=== PATIENT | male | born 1940 | race Caucasian/White ===

== ENCOUNTER 2022-01-09 17:58 | Inpatient (IN) | payer OTHER ==
[~2022-01-09] VITALS: Ht 157.5 cm; Wt 94.3 kg
[2022-01-09 18:35] VITALS: BP_SYST 110
[2022-01-09 19:05] LABS: HEMATOCRIT 24.9 % (36-54); HEMOGLOBIN 8.1 g/dL (14.0-18.0); MEAN CORPUSCULAR HEMOGLOBIN 32 pg (27-31); MEAN CORPUSCULAR HGB CONC 33 % (32-36); MEAN CORPUSCULAR VOLUME 97 fL (79.0-98.0); PLATELET COUNT (AUTO) 223 K/uL (130-430); RED BLOOD CELL COUNT(AUTO) 2.57 MIL/uL (4.2-6.2); RED CELL DISTRIBUTION WIDTH 17.2 % (9.0-15.0); WHITE BLOOD COUNT (AUTO) 13.8 K/uL (4.8-10.8)
[2022-01-09 19:23] LABS: BAND % (MANUAL) 11 % (0-6); BASOPHILS % (MANUAL) 0 % (0-2); EOSINOPHILS % (MANUAL) 0 % (0-7); LYMPHOCYTES % (MANUAL) 4 % (20-46); METAMYELOCYTES % 2 % (0-0); MONOCYTES % (MANUAL) 0 % (0-11)
[2022-01-09 19:43] LABS: ACETONE, SERUM NEGATIVE (NEGATIVE)
[2022-01-09 19:44] LABS: ANION GAP 22 (5-15); CALCIUM 7.4 mg/dL (8.4-11.0); CHLORIDE 111 mmol/L (98-107); CREATININE 6.87 mg/dL (0.55-1.30); GLUCOSE 134 mg/dL (70-99); TOTAL BILIRUBIN 0.4 mg/dL (0.0-1.0); UREA NITROGEN, BLOOD 78 mg/dL (8-21)
[2022-01-09 19:45] LABS: ALANINE AMINOTRANSFERASE 12 U/L (12-78); ALBUMIN 2.4 g/dL (3.4-4.8); ASPARTATE AMINOTRANSFERASE 14 U/L (10-37)
[2022-01-09 19:47] LABS: POTASSIUM 2.4 mmol/L (3.5-5.1)
[2022-01-09] MEDS ORDERED: POTASSIUM CHLORIDE 20 MEQ/PKT PACKET PO ONE (20:45)
[2022-01-09] MEDS ORDERED: KCL 20 mEq in 100 mL (PREMIX) 100 ML IV ONE (20:45)
[2022-01-09] MEDS ORDERED: NS 500 ML IV ONE (21:15)
[2022-01-09] MEDS ORDERED: SODIUM BICARBONATE 8.4% JECT 100 MEQ in D5W 1,000 ML IV ONE (21:45)
[2022-01-10] VITALS (21 sets, daily range): BP systolic 86–144
[2022-01-10 06:08] LABS: HEMATOCRIT 22.7 % (36-54); HEMOGLOBIN 7.6 g/dL (14.0-18.0); MEAN CORPUSCULAR HEMOGLOBIN 32 pg (27-31); MEAN CORPUSCULAR HGB CONC 33 % (32-36); MEAN CORPUSCULAR VOLUME 97 fL (79.0-98.0); PLATELET COUNT (AUTO) 232 K/uL (130-430); RED BLOOD CELL COUNT(AUTO) 2.34 MIL/uL (4.2-6.2); RED CELL DISTRIBUTION WIDTH 16.6 % (9.0-15.0)
[2022-01-10 07:15] LABS: ALANINE AMINOTRANSFERASE 14 U/L (12-78); ALBUMIN 2.2 g/dL (3.4-4.8); ANION GAP 20 (5-15); ASPARTATE AMINOTRANSFERASE 17 U/L (10-37); CALCIUM 7.3 mg/dL (8.4-11.0); CHLORIDE 110 mmol/L (98-107); CREATININE 7.05 mg/dL (0.55-1.30); GLUCOSE 134 mg/dL (70-99); TOTAL BILIRUBIN 0.4 mg/dL (0.0-1.0); UREA NITROGEN, BLOOD 81 mg/dL (8-21)
[2022-01-10 07:19] LABS: WHITE BLOOD COUNT (AUTO) 36.3 K/uL (4.8-10.8)
[2022-01-10 07:37] LABS: POTASSIUM 2.9 mmol/L (3.5-5.1)
[2022-01-10 08:23] LABS: ATYPICAL LYMPHOCYTES % 0 % (0-0); BAND % (MANUAL) 9 % (0-6); BASOPHILS % (MANUAL) 0 % (0-2); EOSINOPHILS % (MANUAL) 1 % (0-7); LYMPHOCYTES % (MANUAL) 6 % (20-46); MONOCYTES % (MANUAL) 5 % (0-11)
[2022-01-10] MEDS ORDERED: PIPERACILLIN/TAZO 4.5GM/DEX-IS 100 ML IV SCH (09:00)
[2022-01-10] MEDS: PIPERACILLIN/TAZOBACTAM 2.25 GM/ D5W 50 ML IV SCH ×6 (09:45→18:28)
[2022-01-10] MEDS: ALBUMIN HUMAN 25% 50 ML IV SCH ×3 (09:45→21:41)
[2022-01-10 09:50] LABS: PROTHROMBIN TIME 10.8 SECS (9.5-12.5)
[2022-01-10] MEDS ORDERED: VANCOMYCIN HCL 1,500 MG in NS 250 ML IV ONE (10:00)
[2022-01-10] MEDS ORDERED: POTASSIUM CHLORIDE 20 MEQ TAB.PRT.SR PO ONE (11:30)
[2022-01-10] MEDS ORDERED: ACETAMINOPHEN 500 MG TABLET ONE (14:20)
[2022-01-10] MEDS: MORPHINE 4 MG INJ. 4 MG/ML VIAL IVP PRN (21:42)
[2022-01-11] VITALS (26 sets, daily range): BP systolic 97–133
[2022-01-11] MEDS: PIPERACILLIN/TAZOBACTAM 2.25 GM/ D5W 50 ML IV SCH ×10 (01:20→23:18)
[2022-01-11] MEDS: MORPHINE 4 MG INJ. 4 MG/ML VIAL IVP PRN ×2 (01:47→12:24)
[2022-01-11 06:30] LABS: BASOPHILS # (AUTO) 0.2 K/uL (0.0-0.2); BASOPHILS % (AUTO) 0.8 % (0.0-2.0); EOSINOPHILS # (AUTO) 0.4 K/uL (0.0-0.4); EOSINOPHILS % (AUTO) 1.7 % (0.0-4.0); HEMATOCRIT 22.7 % (36-54); HEMOGLOBIN 7.6 g/dL (14.0-18.0); LYMPHOCYTES # (AUTO) 2.2 K/uL (1.0-5.5); LYMPHOCYTES % (AUTO) 9.7 % (20.5-51.5); MEAN CORPUSCULAR HEMOGLOBIN 32 pg (27-31); MEAN CORPUSCULAR HGB CONC 34 % (32-36); MEAN CORPUSCULAR VOLUME 96 fL (79.0-98.0); MONOCYTES # (AUTO) 1.2 K/uL (0.0-1.0); MONOCYTES % (AUTO) 5.3 % (1.7-9.3); NEUTROPHILS # (AUTO) 18.9 K/uL (1.8-7.7); NEUTROPHILS % (AUTO) 82.5 % (40.0-70.0); PLATELET COUNT (AUTO) 223 K/uL (130-430); RED BLOOD CELL COUNT(AUTO) 2.36 MIL/uL (4.2-6.2); RED CELL DISTRIBUTION WIDTH 16.9 % (9.0-15.0); WHITE BLOOD COUNT (AUTO) 22.9 K/uL (4.8-10.8)
[2022-01-11 06:48] LABS: ANION GAP 17 (5-15); CALCIUM 7.4 mg/dL (8.4-11.0); CHLORIDE 109 mmol/L (98-107); GLUCOSE 106 mg/dL (70-99); UREA NITROGEN, BLOOD 80 mg/dL (8-21)
[2022-01-11 08:44] LABS: CREATININE 7.62 mg/dL (0.55-1.30); POTASSIUM 2.9 mmol/L (3.5-5.1)
[2022-01-11] MEDS: ACETAMINOPHEN 500 MG TABLET PO PRN (11:03)
[2022-01-11] MEDS ORDERED: VANCOMYCIN HCL 1,000 MG in NS 250 ML IV ONE (14:00)
[2022-01-11] MEDS ORDERED: POTASSIUM CHLORIDE 40 MEQ in NS 250 ML IV ONE (16:00)
[2022-01-11] MEDS ORDERED: HEPARIN SODIUM, PORCINE 10,000 UNITS/ 10 ML VIAL ONE (17:04)
[2022-01-11] MEDS ORDERED: HEPARIN IV FLUSH 300 UNITS/3ML SYR INJ ONE (17:15)
[2022-01-12] VITALS (19 sets, daily range): BP systolic 107–131
[2022-01-12] MEDS: PIPERACILLIN/TAZOBACTAM 2.25 GM/ D5W 50 ML IV SCH ×6 (05:12→18:33)
[2022-01-12 06:29] LABS: BASOPHILS # (AUTO) 0.2 K/uL (0.0-0.2); BASOPHILS % (AUTO) 0.9 % (0.0-2.0); EOSINOPHILS # (AUTO) 0.3 K/uL (0.0-0.4); EOSINOPHILS % (AUTO) 1.3 % (0.0-4.0); HEMOGLOBIN 7.3 g/dL (14.0-18.0); LYMPHOCYTES # (AUTO) 2.1 K/uL (1.0-5.5); LYMPHOCYTES % (AUTO) 11.3 % (20.5-51.5); MEAN CORPUSCULAR HEMOGLOBIN 33 pg (27-31); MEAN CORPUSCULAR HGB CONC 35 % (32-36); MEAN CORPUSCULAR VOLUME 95 fL (79.0-98.0); MONOCYTES # (AUTO) 1.3 K/uL (0.0-1.0); MONOCYTES % (AUTO) 7.1 % (1.7-9.3); NEUTROPHILS # (AUTO) 14.9 K/uL (1.8-7.7); NEUTROPHILS % (AUTO) 79.4 % (40.0-70.0); PLATELET COUNT (AUTO) 225 K/uL (130-430); RED BLOOD CELL COUNT(AUTO) 2.23 MIL/uL (4.2-6.2); RED CELL DISTRIBUTION WIDTH 16.4 % (9.0-15.0); WHITE BLOOD COUNT (AUTO) 18.8 K/uL (4.8-10.8)
[2022-01-12 06:53] LABS: ANION GAP 19 (5-15); CHLORIDE 106 mmol/L (98-107); CREATININE 5.88 mg/dL (0.55-1.30); GLUCOSE 108 mg/dL (70-99); POTASSIUM 3.1 mmol/L (3.5-5.1); UREA NITROGEN, BLOOD 60 mg/dL (8-21)
[2022-01-12 07:06] LABS: HEMATOCRIT 21.2 % (36-54)
[2022-01-12 07:53] LABS: CALCIUM 7.3 mg/dL (8.4-11.0)
[2022-01-12] MEDS: MORPHINE 4 MG INJ. 4 MG/ML VIAL IVP PRN (11:45)
[2022-01-12] MEDS ORDERED: HEPARIN SODIUM,PORCINE 5,000 UNITS/ML VIAL ONE (13:16)
[2022-01-12] MEDS ORDERED: VANCOMYCIN HCL 1,000 MG in NS 250 ML IV ONE (14:00)
[2022-01-13] VITALS: BP_SYST 122
[2022-01-13] MEDS: PIPERACILLIN/TAZOBACTAM 2.25 GM/ D5W 50 ML IV SCH ×10 (00:10→23:55)
[2022-01-13 06:52] LABS: BASOPHILS # (AUTO) 0.2 K/uL (0.0-0.2); BASOPHILS % (AUTO) 0.8 % (0.0-2.0); EOSINOPHILS # (AUTO) 0.2 K/uL (0.0-0.4); HEMATOCRIT 27.5 % (36-54); HEMOGLOBIN 9.6 g/dL (14.0-18.0); LYMPHOCYTES # (AUTO) 2.8 K/uL (1.0-5.5); LYMPHOCYTES % (AUTO) 11.5 % (20.5-51.5); MEAN CORPUSCULAR HEMOGLOBIN 32 pg (27-31); MEAN CORPUSCULAR HGB CONC 35 % (32-36); MEAN CORPUSCULAR VOLUME 92 fL (79.0-98.0); MONOCYTES # (AUTO) 1.2 K/uL (0.0-1.0); NEUTROPHILS % (AUTO) 81.7 % (40.0-70.0); PLATELET COUNT (AUTO) 256 K/uL (130-430); RED BLOOD CELL COUNT(AUTO) 2.98 MIL/uL (4.2-6.2); WHITE BLOOD COUNT (AUTO) 24.5 K/uL (4.8-10.8)
[2022-01-13 07:56] LABS: ANION GAP 17 (5-15); CALCIUM 7.9 mg/dL (8.4-11.0); CHLORIDE 100 mmol/L (98-107); GLUCOSE 135 mg/dL (70-99); UREA NITROGEN, BLOOD 39 mg/dL (8-21)
[2022-01-13 08:00] VITALS: BP_SYST 117
[2022-01-13] MEDS: BALSAM PERU/CASTOR OIL 56.7 GM OINT...G. TP SCH (10:07)
[2022-01-13 12:00] VITALS: BP_SYST 132
[2022-01-13 12:50] LABS: VANCOMYCIN,RANDOM 23.4 ug/mL
[2022-01-13] MEDS ORDERED: VANCOMYCIN HCL 500 MG in NS 100 ML IV ONE (14:00)
[2022-01-13 16:01] VITALS: BP_SYST 120
[2022-01-13] MEDS: MORPHINE 4 MG INJ. 4 MG/ML VIAL IVP PRN ×2 (18:30→22:13)
[2022-01-13] MEDS: ONDANSETRON HCL 4 MG/2 ML VIAL IVP PRN (18:56)
[2022-01-13 20:04] VITALS: BP_SYST 122
[2022-01-13 20:05] VITALS: BP_SYST 122
[2022-01-14] MEDS: MORPHINE 4 MG INJ. 4 MG/ML VIAL IVP PRN ×2 (05:55→14:05)
[2022-01-14] MEDS: PIPERACILLIN/TAZOBACTAM 2.25 GM/ D5W 50 ML IV SCH ×8 (05:55→23:20)
[2022-01-14 07:00] VITALS: BP_SYST 125
[2022-01-14 07:05] LABS: CALCIUM 8.2 mg/dL (8.4-11.0); CHLORIDE 98 mmol/L (98-107); CREATININE 6.41 mg/dL (0.55-1.30); GLUCOSE 132 mg/dL (70-99); UREA NITROGEN, BLOOD 50 mg/dL (8-21)
[2022-01-14 07:13] LABS: HEMOGLOBIN 9.5 g/dL (14.0-18.0); MEAN CORPUSCULAR HEMOGLOBIN 32 pg (27-31); MEAN CORPUSCULAR HGB CONC 34 % (32-36); MEAN CORPUSCULAR VOLUME 94 fL (79.0-98.0); PLATELET COUNT (AUTO) 271 K/uL (130-430); RED CELL DISTRIBUTION WIDTH 17.5 % (9.0-15.0); WHITE BLOOD COUNT (AUTO) 27.5 K/uL (4.8-10.8)
[2022-01-14 07:32] LABS: ANION GAP 16 (5-15)
[2022-01-14 07:46] LABS: POTASSIUM 2.9 mmol/L (3.5-5.1)
[2022-01-14 08:00] VITALS: BP_SYST 125
[2022-01-14] MEDS: BALSAM PERU/CASTOR OIL 56.7 GM OINT...G. TP SCH (08:32)
[2022-01-14 09:25] LABS: LYMPHOCYTES % (AUTO) 12.5 % (20.5-51.5); NEUTROPHILS % (AUTO) 77.7 % (40.0-70.0)
[2022-01-14 09:26] LABS: BASOPHILS % (AUTO) 0.9 % (0.0-2.0); EOSINOPHILS % (AUTO) 2.2 % (0.0-4.0); MONOCYTES % (AUTO) 6.7 % (1.7-9.3)
[2022-01-14 09:27] LABS: ATYPICAL LYMPHOCYTES % 0 % (0-0); BAND % (MANUAL) 59 % (0-6); BASOPHILS % (MANUAL) 0 % (0-2); BLASTS, MANUAL % 0 % (0-0); EOSINOPHILS % (MANUAL) 3 % (0-7); LYMPHOCYTES % (MANUAL) 14 % (20-46); METAMYELOCYTES % 0 % (0-0); MONOCYTES % (MANUAL) 5 % (0-11); MYELOCYTES % 0 % (0-0); PROMYELOCYTES % 0 % (0-0)
[2022-01-14 09:28] LABS: OTHER CELLS,MANUAL % 0 (0-0)
[2022-01-14 09:55] LABS: VANCOMYCIN,RANDOM 22.4 ug/mL
[2022-01-14] MEDS ORDERED: KCL 10 mEq in 50 mL (PREMIX) 50 ML IV ONE (11:00)
[2022-01-14] MEDS ORDERED: KCL 20 mEq in 100 mL (PREMIX) 100 ML IV ONE (12:00)
[2022-01-14 12:39] VITALS: BP_SYST 116
[2022-01-14] MEDS: FLUCONAZOLE 200 mg/ NS 100 ML IV SCH (14:16)
[2022-01-14] MEDS ORDERED: HEPARIN SODIUM,PORCINE 5,000 UNITS/ML VIAL IVP ONE (15:45)
[2022-01-14] MEDS ORDERED: HEPARIN SODIUM,PORCINE 5,000 UNITS/ML VIAL MC ONE (16:00)
[2022-01-14 17:07] VITALS: BP_SYST 121
[2022-01-14 19:20] VITALS: BP_SYST 95
[2022-01-14] MEDS: ONDANSETRON HCL 4 MG/2 ML VIAL IVP PRN (23:20)
[2022-01-14 23:49] VITALS: BP_SYST 121
[2022-01-15] MEDS: MORPHINE 4 MG INJ. 4 MG/ML VIAL IVP PRN ×3 (01:31→15:17)
[2022-01-15] MEDS: PIPERACILLIN/TAZOBACTAM 2.25 GM/ D5W 50 ML IV SCH ×8 (05:15→23:52)
[2022-01-15 07:03] LABS: BASOPHILS # (AUTO) 0.2 K/uL (0.0-0.2); BASOPHILS % (AUTO) 0.7 % (0.0-2.0); EOSINOPHILS # (AUTO) 0.4 K/uL (0.0-0.4); EOSINOPHILS % (AUTO) 1.6 % (0.0-4.0); HEMATOCRIT 29.1 % (36-54); HEMOGLOBIN 9.6 g/dL (14.0-18.0); LYMPHOCYTES # (AUTO) 3.5 K/uL (1.0-5.5); LYMPHOCYTES % (AUTO) 13.5 % (20.5-51.5); MEAN CORPUSCULAR HEMOGLOBIN 32 pg (27-31); MEAN CORPUSCULAR HGB CONC 33 % (32-36); MEAN CORPUSCULAR VOLUME 95 fL (79.0-98.0); MONOCYTES # (AUTO) 1.7 K/uL (0.0-1.0); MONOCYTES % (AUTO) 6.8 % (1.7-9.3); NEUTROPHILS # (AUTO) 19.8 K/uL (1.8-7.7); NEUTROPHILS % (AUTO) 77.4 % (40.0-70.0); PLATELET COUNT (AUTO) 235 K/uL (130-430); RED BLOOD CELL COUNT(AUTO) 3.05 MIL/uL (4.2-6.2); RED CELL DISTRIBUTION WIDTH 17.2 % (9.0-15.0); WHITE BLOOD COUNT (AUTO) 25.6 K/uL (4.8-10.8)
[2022-01-15 07:19] LABS: CALCIUM 8.1 mg/dL (8.4-11.0); CREATININE 5.01 mg/dL (0.55-1.30); POTASSIUM 3.5 mmol/L (3.5-5.1)
[2022-01-15 07:51] LABS: VANCOMYCIN,RANDOM 17.7 ug/mL
[2022-01-15 08:00] VITALS: BP_SYST 119
[2022-01-15 08:06] LABS: HEPATITIS C VIRUS AB 0.3 s/co ratio (0.0-0.9)
[2022-01-15] MEDS: BALSAM PERU/CASTOR OIL 56.7 GM OINT...G. TP SCH (09:00)
[2022-01-15 12:39] VITALS: BP_SYST 144
[2022-01-15] MEDS: FLUCONAZOLE 200 mg/ NS 100 ML IV SCH (15:02)
[2022-01-15 16:10] VITALS: BP_SYST 140
[2022-01-16 00:50] VITALS: BP_SYST 138
[2022-01-16] MEDS: PIPERACILLIN/TAZOBACTAM 2.25 GM/ D5W 50 ML IV SCH ×6 (06:14→17:12)
[2022-01-16 08:00] VITALS: BP_SYST 136
[2022-01-16] MEDS: BALSAM PERU/CASTOR OIL 56.7 GM OINT...G. TP SCH (09:16)
[2022-01-16] MEDS: MORPHINE 4 MG INJ. 4 MG/ML VIAL IVP PRN (09:16)
[2022-01-16 11:41] VITALS: BP_SYST 106
[2022-01-16 12:00] VITALS: BP_SYST 110
[2022-01-16] MEDS ORDERED: VANCOMYCIN HCL 1,000 MG in NS 250 ML IV ONE (14:00)
[2022-01-16] MEDS: FLUCONAZOLE 200 mg/ NS 100 ML IV SCH (14:22)
[2022-01-16] MEDS ORDERED: iohexoL 300 mgI/mL, 150 ML INFUS..BTL IV ONE (15:37)
[2022-01-16 17:14] VITALS: BP_SYST 110
[2022-01-16 20:00] VITALS: BP_SYST 115
[2022-01-17] VITALS: BP_SYST 116
[2022-01-17] MEDS: PIPERACILLIN/TAZOBACTAM 2.25 GM/ D5W 50 ML IV SCH ×4 (00:57→06:39)
[2022-01-17 07:00] VITALS: BP_SYST 104
[2022-01-17 08:00] VITALS: BP_SYST 104
[2022-01-17] MEDS: BALSAM PERU/CASTOR OIL 56.7 GM OINT...G. TP SCH (08:52)
[2022-01-17] MEDS: MORPHINE 4 MG INJ. 4 MG/ML VIAL IVP PRN (09:39)
[2022-01-17 11:17] VITALS: BP_SYST 109
[2022-01-17 16:06] VITALS: BP_SYST 123
[2022-01-17] MEDS: FLUCONAZOLE 200 mg/ NS 100 ML IV SCH (18:10)
[2022-01-17 20:00] VITALS: BP_SYST 119
[2022-01-17] MEDS: metroNIDAZOLE 250 mg/NS 50 ML IV SCH (21:30)
[2022-01-17 21:38] LABS: HEMATOCRIT 28.6 % (36-54); HEMOGLOBIN 9.4 g/dL (14.0-18.0); MEAN CORPUSCULAR HEMOGLOBIN 31 pg (27-31); MEAN CORPUSCULAR HGB CONC 33 % (32-36); MEAN CORPUSCULAR VOLUME 94 fL (79.0-98.0); PLATELET COUNT (AUTO) 296 K/uL (130-430); RED BLOOD CELL COUNT(AUTO) 3.04 MIL/uL (4.2-6.2); RED CELL DISTRIBUTION WIDTH 17.2 % (9.0-15.0); WHITE BLOOD COUNT (AUTO) 18.3 K/uL (4.8-10.8)
[2022-01-17 22:25] LABS: BAND % (MANUAL) 3 % (0-6); BASOPHILS % (MANUAL) 0 % (0-2); EOSINOPHILS % (MANUAL) 0 % (0-7); METAMYELOCYTES % 2 % (0-0); MONOCYTES % (MANUAL) 6 % (0-11); MYELOCYTES % 1 % (0-0)
[2022-01-17 22:27] LABS: LYMPHOCYTES % (MANUAL) 15 % (20-46)
[2022-01-18 00:45] VITALS: BP_SYST 105
[2022-01-18] MEDS: MORPHINE 4 MG INJ. 4 MG/ML VIAL IVP PRN ×2 (04:33→20:57)
[2022-01-18] MEDS: ONDANSETRON HCL 4 MG/2 ML VIAL IVP PRN ×2 (04:33→13:25)
[2022-01-18] MEDS: metroNIDAZOLE 250 mg/NS 50 ML IV SCH ×3 (05:21→20:57)
[2022-01-18] MEDS: BALSAM PERU/CASTOR OIL 56.7 GM OINT...G. TP SCH (09:39)
[2022-01-18] MEDS: FLUCONAZOLE 200 mg/ NS 100 ML IV SCH (10:47)
[2022-01-18 11:06] LABS: HEPATITIS A AB, IgM Negative (Negative); HEPATITIS B CORE AB, IgM Negative (Negative); HEPATITIS B SURFACE AG Negative (Negative)
[2022-01-18] MEDS ORDERED: PANTOPRAZOLE SODIUM 40 MG/VIAL (PROTONIX) IVP ONE (12:00)
[2022-01-18 12:54] VITALS: BP_SYST 114
[2022-01-18] MEDS ORDERED: HEPARIN SODIUM, PORCINE 10,000 UNITS/ 10 ML VIAL ONE (13:21)
[2022-01-18 16:59] VITALS: BP_SYST 109
[2022-01-18 20:00] VITALS: BP_SYST 130
[2022-01-19 00:24] VITALS: BP_SYST 132
[2022-01-19] MEDS: metroNIDAZOLE 250 mg/NS 50 ML IV SCH ×3 (06:35→21:31)
[2022-01-19 08:38] VITALS: BP_SYST 113
[2022-01-19] MEDS: VANCOMYCIN HCL 750 MG in NS 250 ML IV SCH (09:11)
[2022-01-19] MEDS: BALSAM PERU/CASTOR OIL 56.7 GM OINT...G. TP SCH (09:11)
[2022-01-19] MEDS: PANTOPRAZOLE SODIUM 40 MG/VIAL (PROTONIX) IVP SCH (09:11)
[2022-01-19] MEDS: FLUCONAZOLE 200 mg/ NS 100 ML IV SCH (14:00)
[2022-01-19 16:02] VITALS: BP_SYST 118
[2022-01-19 20:00] VITALS: BP_SYST 117
[2022-01-20 00:52] VITALS: BP_SYST 119
[2022-01-20] MEDS: metroNIDAZOLE 250 mg/NS 50 ML IV SCH ×3 (05:25→21:09)
[2022-01-20 08:00] VITALS: BP_SYST 113
[2022-01-20] MEDS: PANTOPRAZOLE SODIUM 40 MG/VIAL (PROTONIX) IVP SCH (08:47)
[2022-01-20] MEDS: BALSAM PERU/CASTOR OIL 56.7 GM OINT...G. TP SCH (08:51)
[2022-01-20 12:55] VITALS: BP_SYST 101
[2022-01-20] MEDS: MORPHINE 4 MG INJ. 4 MG/ML VIAL IVP PRN (14:22)
[2022-01-20 16:34] VITALS: BP_SYST 97
[2022-01-20] MEDS: FLUCONAZOLE 200 mg/ NS 100 ML IV SCH (16:35)
[2022-01-20 20:00] VITALS: BP_SYST 116
[2022-01-20 20:00] LABS: HEMATOCRIT 28.9 % (36-54); HEMOGLOBIN 9.3 g/dL (14.0-18.0); MEAN CORPUSCULAR HEMOGLOBIN 31 pg (27-31); MEAN CORPUSCULAR HGB CONC 32 % (32-36); MEAN CORPUSCULAR VOLUME 96 fL (79.0-98.0); PLATELET COUNT (AUTO) 324 K/uL (130-430); RED BLOOD CELL COUNT(AUTO) 3.01 MIL/uL (4.2-6.2); RED CELL DISTRIBUTION WIDTH 16.7 % (9.0-15.0); WHITE BLOOD COUNT (AUTO) 19.7 K/uL (4.8-10.8)
[2022-01-20 20:07] LABS: ANION GAP 9 (5-15); CALCIUM 8.3 mg/dL (8.4-11.0); CHLORIDE 97 mmol/L (98-107); GLUCOSE 157 mg/dL (70-99); POTASSIUM 3.3 mmol/L (3.5-5.1); UREA NITROGEN, BLOOD 31 mg/dL (8-21)
[2022-01-20 20:24] LABS: BAND % (MANUAL) 3 % (0-6); BASOPHILS % (MANUAL) 0 % (0-2); EOSINOPHILS % (MANUAL) 2 % (0-7); LYMPHOCYTES % (MANUAL) 14 % (20-46); METAMYELOCYTES % 2 % (0-0); MONOCYTES % (MANUAL) 5 % (0-11)
[2022-01-21] VITALS: BP_SYST 114
[2022-01-21] MEDS: metroNIDAZOLE 250 mg/NS 50 ML IV SCH ×3 (05:17→20:57)
[2022-01-21 06:59] LABS: BASOPHILS # (AUTO) 0.1 K/uL (0.0-0.2); BASOPHILS % (AUTO) 0.5 % (0.0-2.0); EOSINOPHILS # (AUTO) 0.3 K/uL (0.0-0.4); EOSINOPHILS % (AUTO) 1.7 % (0.0-4.0); HEMATOCRIT 26.4 % (36-54); HEMOGLOBIN 8.8 g/dL (14.0-18.0); LYMPHOCYTES # (AUTO) 2.4 K/uL (1.0-5.5); LYMPHOCYTES % (AUTO) 14.2 % (20.5-51.5); MEAN CORPUSCULAR HEMOGLOBIN 32 pg (27-31); MEAN CORPUSCULAR HGB CONC 34 % (32-36); MEAN CORPUSCULAR VOLUME 95 fL (79.0-98.0); MONOCYTES # (AUTO) 1.6 K/uL (0.0-1.0); MONOCYTES % (AUTO) 9.4 % (1.7-9.3); NEUTROPHILS # (AUTO) 12.8 K/uL (1.8-7.7); NEUTROPHILS % (AUTO) 74.2 % (40.0-70.0); PLATELET COUNT (AUTO) 283 K/uL (130-430); RED BLOOD CELL COUNT(AUTO) 2.77 MIL/uL (4.2-6.2); RED CELL DISTRIBUTION WIDTH 16.6 % (9.0-15.0); WHITE BLOOD COUNT (AUTO) 17.2 K/uL (4.8-10.8)
[2022-01-21 08:00] VITALS: BP_SYST 93
[2022-01-21] MEDS: VANCOMYCIN HCL 750 MG in NS 250 ML IV SCH (11:01)
[2022-01-21] MEDS: PANTOPRAZOLE SODIUM 40 MG/VIAL (PROTONIX) IVP SCH (11:02)
[2022-01-21] MEDS: MORPHINE 4 MG INJ. 4 MG/ML VIAL IVP PRN ×2 (11:11→21:11)
[2022-01-21] MEDS: BALSAM PERU/CASTOR OIL 56.7 GM OINT...G. TP SCH (11:33)
[2022-01-21 12:00] VITALS: BP_SYST 118
[2022-01-21 18:00] VITALS: BP_SYST 111
[2022-01-21] MEDS: FLUCONAZOLE 200 mg/ NS 100 ML IV SCH (18:16)
[2022-01-21] MEDS: ACETAMINOPHEN 500 MG TABLET PO PRN (19:11)
[2022-01-21 20:00] VITALS: BP_SYST 114
[2022-01-22] VITALS: BP_SYST 106
[2022-01-22] MEDS: MORPHINE 4 MG INJ. 4 MG/ML VIAL IVP PRN ×3 (04:26→18:28)
[2022-01-22] MEDS: metroNIDAZOLE 250 mg/NS 50 ML IV SCH ×3 (05:34→22:50)
[2022-01-22 07:03] LABS: BASOPHILS # (AUTO) 0.1 K/uL (0.0-0.2); BASOPHILS % (AUTO) 0.4 % (0.0-2.0); EOSINOPHILS # (AUTO) 0.3 K/uL (0.0-0.4); EOSINOPHILS % (AUTO) 1.8 % (0.0-4.0); HEMATOCRIT 26.5 % (36-54); HEMOGLOBIN 8.8 g/dL (14.0-18.0); LYMPHOCYTES # (AUTO) 2.5 K/uL (1.0-5.5); LYMPHOCYTES % (AUTO) 14.1 % (20.5-51.5); MEAN CORPUSCULAR HEMOGLOBIN 32 pg (27-31); MEAN CORPUSCULAR HGB CONC 33 % (32-36); MEAN CORPUSCULAR VOLUME 95 fL (79.0-98.0); MONOCYTES # (AUTO) 1.5 K/uL (0.0-1.0); MONOCYTES % (AUTO) 8.1 % (1.7-9.3); NEUTROPHILS # (AUTO) 13.6 K/uL (1.8-7.7); NEUTROPHILS % (AUTO) 75.6 % (40.0-70.0); PLATELET COUNT (AUTO) 316 K/uL (130-430); RED BLOOD CELL COUNT(AUTO) 2.78 MIL/uL (4.2-6.2); RED CELL DISTRIBUTION WIDTH 17.1 % (9.0-15.0)
[2022-01-22 08:00] VITALS: BP_SYST 111
[2022-01-22 08:05] LABS: ANION GAP 13 (5-15); CALCIUM 8.1 mg/dL (8.4-11.0); CHLORIDE 99 mmol/L (98-107); CREATININE 6.62 mg/dL (0.55-1.30); GLUCOSE 132 mg/dL (70-99); UREA NITROGEN, BLOOD 46 mg/dL (8-21)
[2022-01-22 08:27] LABS: POTASSIUM 2.9 mmol/L (3.5-5.1)
[2022-01-22] MEDS: PANTOPRAZOLE SODIUM 40 MG/VIAL (PROTONIX) IVP SCH (10:32)
[2022-01-22] MEDS: BALSAM PERU/CASTOR OIL 56.7 GM OINT...G. TP SCH (10:33)
[2022-01-22 12:00] VITALS: BP_SYST 112
[2022-01-22] MEDS ORDERED: KCL 40 mEq in 100 mL (PREMIX) 100 ML IV ONE (12:30)
[2022-01-22] MEDS ORDERED: NALOXONE HCL 0.4 MG/ML AMP (NARCAN) IVP PRN (12:45)
[2022-01-22] MEDS: POTASSIUM CHLORIDE 20 mEq in 100 mL (PREMIX) 100 ML x 2 doses IV SCH ×2 (14:17→20:58)
[2022-01-22] MEDS: FLUCONAZOLE 200 mg/ NS 100 ML IV SCH (15:36)
[2022-01-22 16:00] VITALS: BP_SYST 110
[2022-01-23] VITALS: BP_SYST 117
[2022-01-23 01:55] VITALS: BP_SYST 118
[2022-01-23] MEDS: metroNIDAZOLE 250 mg/NS 50 ML IV SCH ×3 (05:18→20:56)
[2022-01-23 06:39] LABS: BILIRUBIN,URINE NEGATIVE (NEGATIVE); BLOOD, URINE 2+ (NEGATIVE); CLARITY/URINE CLEAR (CLEAR); COLOR,URINE YELLOW (YELLOW); GLUCOSE,URINE NEGATIVE (NEGATIVE); KETONES,URINE NEGATIVE (NEGATIVE); LEUKOCYTE ESTERASE ,URINE NEGATIVE (NEGATIVE); NITRITE, URINE NEGATIVE (NEGATIVE); PH,URINE 5.5 (5.0-8.0); PROTEIN URINE TRACE (NEGATIVE); UROBILINOGEN,URINE 0.2 (0.2-1.0)
[2022-01-23 07:07] LABS: BACTERIA,URINE RARE /HPF (None Seen); MUCUS,URINE 1+ /LPF (None Seen); RBC,URINE 0-3 /HPF (0-3); WBC,URINE 0-3 /HPF (0-3)
[2022-01-23 08:00] VITALS: BP_SYST 129
[2022-01-23] MEDS: PANTOPRAZOLE SODIUM 40 MG/VIAL (PROTONIX) IVP SCH (08:37)
[2022-01-23] MEDS: BALSAM PERU/CASTOR OIL 56.7 GM OINT...G. TP SCH (08:38)
[2022-01-23] MEDS: VANCOMYCIN HCL 750 MG in NS 250 ML IV SCH (08:38)
[2022-01-23 09:44] LABS: BASOPHILS # (AUTO) 0.1 K/uL (0.0-0.2); BASOPHILS % (AUTO) 0.8 % (0.0-2.0); EOSINOPHILS # (AUTO) 0.2 K/uL (0.0-0.4); EOSINOPHILS % (AUTO) 1.7 % (0.0-4.0); HEMATOCRIT 26.9 % (36-54); HEMOGLOBIN 8.9 g/dL (14.0-18.0); LYMPHOCYTES # (AUTO) 1.7 K/uL (1.0-5.5); LYMPHOCYTES % (AUTO) 12.7 % (20.5-51.5); MEAN CORPUSCULAR HEMOGLOBIN 32 pg (27-31); MEAN CORPUSCULAR HGB CONC 33 % (32-36); MEAN CORPUSCULAR VOLUME 96 fL (79.0-98.0); MONOCYTES # (AUTO) 0.9 K/uL (0.0-1.0); MONOCYTES % (AUTO) 6.6 % (1.7-9.3); NEUTROPHILS # (AUTO) 10.7 K/uL (1.8-7.7); NEUTROPHILS % (AUTO) 78.2 % (40.0-70.0); PLATELET COUNT (AUTO) 330 K/uL (130-430); RED BLOOD CELL COUNT(AUTO) 2.81 MIL/uL (4.2-6.2); RED CELL DISTRIBUTION WIDTH 16.8 % (9.0-15.0); WHITE BLOOD COUNT (AUTO) 13.7 K/uL (4.8-10.8)
[2022-01-23 09:55] LABS: ALANINE AMINOTRANSFERASE 13 U/L (12-78); ALBUMIN 1.9 g/dL (3.4-4.8); ANION GAP 9 (5-15); ASPARTATE AMINOTRANSFERASE 23 U/L (10-37); CALCIUM 7.8 mg/dL (8.4-11.0); CHLORIDE 101 mmol/L (98-107); CREATININE 4.98 mg/dL (0.55-1.30); GLUCOSE 123 mg/dL (70-99); PHOSPHORUS 4.4 mg/dL (2.7-4.5); POTASSIUM 3.2 mmol/L (3.5-5.1); TOTAL BILIRUBIN 0.2 mg/dL (0.0-1.0); UREA NITROGEN, BLOOD 32 mg/dL (8-21)
[2022-01-23 12:47] VITALS: BP_SYST 112
[2022-01-23] MEDS: MORPHINE 4 MG INJ. 4 MG/ML VIAL IVP PRN ×3 (14:23→22:36)
[2022-01-23] MEDS: FLUCONAZOLE 200 mg/ NS 100 ML IV SCH (17:29)
[2022-01-23 18:37] VITALS: BP_SYST 118
[2022-01-23] MEDS: HYDROcodone/ACETAMIN 5-325 MG TAB (NORCO/ VICODIN) PO PRN (20:56)
[2022-01-23 22:01] VITALS: BP_SYST 119
[2022-01-24 05:22] VITALS: BP_SYST 120
[2022-01-24] MEDS: metroNIDAZOLE 250 mg/NS 50 ML IV SCH (06:53)
[2022-01-24 07:41] LABS: ANION GAP 10 (5-15); CALCIUM 7.9 mg/dL (8.4-11.0); CHLORIDE 102 mmol/L (98-107); CREATININE 5.86 mg/dL (0.55-1.30); GLUCOSE 124 mg/dL (70-99); UREA NITROGEN, BLOOD 35 mg/dL (8-21)
[2022-01-24 08:00] VITALS: BP_SYST 96
[2022-01-24] MEDS: BALSAM PERU/CASTOR OIL 56.7 GM OINT...G. TP SCH (08:53)
[2022-01-24] MEDS: PANTOPRAZOLE SODIUM 40 MG/VIAL (PROTONIX) IVP SCH (08:53)
[2022-01-24] MEDS: MORPHINE 4 MG INJ. 4 MG/ML VIAL IVP PRN ×2 (09:02→15:44)
[2022-01-24 11:30] VITALS: BP_SYST 104
[2022-01-24] MEDS: FLUCONAZOLE 200 mg/ NS 100 ML IV SCH (15:44)
[2022-01-24 15:47] VITALS: BP_SYST 104
[2022-01-24] MEDS: metroNIDAZOLE 500 MG TABLET PO SCH (20:42)
[2022-01-24] MEDS: cephALEXin 500 MG CAPSULE PO SCH (20:42)
[2022-01-24 21:28] VITALS: BP_SYST 115
[2022-01-24 21:33] VITALS: BP_SYST 115
[2022-01-25] VITALS (7 sets, daily range): BP systolic 91–119
[2022-01-25 07:25] LABS: ANION GAP 12 (5-15); CALCIUM 8.1 mg/dL (8.4-11.0); CHLORIDE 100 mmol/L (98-107); CREATININE 6.59 mg/dL (0.55-1.30); GLUCOSE 144 mg/dL (70-99); POTASSIUM 3.3 mmol/L (3.5-5.1); UREA NITROGEN, BLOOD 39 mg/dL (8-21)
[2022-01-25 08:11] LABS: BASOPHILS # (AUTO) 0.1 K/uL (0.0-0.2); BASOPHILS % (AUTO) 0.6 % (0.0-2.0); EOSINOPHILS # (AUTO) 0.2 K/uL (0.0-0.4); EOSINOPHILS % (AUTO) 1.9 % (0.0-4.0); HEMATOCRIT 25.3 % (36-54); HEMOGLOBIN 8.5 g/dL (14.0-18.0); LYMPHOCYTES # (AUTO) 2.2 K/uL (1.0-5.5); LYMPHOCYTES % (AUTO) 18.6 % (20.5-51.5); MEAN CORPUSCULAR HEMOGLOBIN 32 pg (27-31); MEAN CORPUSCULAR HGB CONC 33 % (32-36); MEAN CORPUSCULAR VOLUME 96 fL (79.0-98.0); MONOCYTES # (AUTO) 1.2 K/uL (0.0-1.0); NEUTROPHILS # (AUTO) 8.2 K/uL (1.8-7.7); NEUTROPHILS % (AUTO) 68.9 % (40.0-70.0); PLATELET COUNT (AUTO) 324 K/uL (130-430); RED BLOOD CELL COUNT(AUTO) 2.65 MIL/uL (4.2-6.2); RED CELL DISTRIBUTION WIDTH 16.9 % (9.0-15.0); WHITE BLOOD COUNT (AUTO) 11.9 K/uL (4.8-10.8)
[2022-01-25 08:32] LABS: INR 1.1 (0.80-1.20); PROTHROMBIN TIME 11.2 SECS (9.5-12.5)
[2022-01-25] MEDS ORDERED: HEPARIN SODIUM,PORCINE 5,000 UNITS/ML VIAL MC ONE (09:15)
[2022-01-25] MEDS: cephALEXin 500 MG CAPSULE PO SCH ×2 (12:26→20:25)
[2022-01-25] MEDS: PANTOPRAZOLE SODIUM 40 MG/VIAL (PROTONIX) IVP SCH (12:26)
[2022-01-25] MEDS: metroNIDAZOLE 500 MG TABLET PO SCH ×2 (12:26→20:25)
[2022-01-25] MEDS: BALSAM PERU/CASTOR OIL 56.7 GM OINT...G. TP SCH (12:27)
[2022-01-25] MEDS: MORPHINE 4 MG INJ. 4 MG/ML VIAL IVP PRN ×2 (12:40→20:32)
[2022-01-26] VITALS (7 sets, daily range): BP systolic 106–118
[2022-01-26] MEDS: MORPHINE 4 MG INJ. 4 MG/ML VIAL IVP PRN ×2 (03:23→21:57)
[2022-01-26] MEDS: cephALEXin 500 MG CAPSULE PO SCH ×2 (09:31→20:45)
[2022-01-26] MEDS: metroNIDAZOLE 500 MG TABLET PO SCH ×2 (09:31→20:45)
[2022-01-26] MEDS: BALSAM PERU/CASTOR OIL 56.7 GM OINT...G. TP SCH (09:31)
[2022-01-26] MEDS: PANTOPRAZOLE SODIUM 40 MG/VIAL (PROTONIX) IVP SCH (09:31)
[2022-01-26] MEDS ORDERED: HYDROmorphone 1 MG/ML INJ. CARTRIDGE IVP PRN (19:45)
[2022-01-26] MEDS ORDERED: ONDANSETRON HCL 4 MG/2 ML VIAL IVP PRN (19:45)
[2022-01-26] MEDS ORDERED: HYDROmorphone 2 MG/ML VIAL IVP PRN (19:45)
[2022-01-26] MEDS ORDERED: NACL 0.9% 1,000 ML IV SCH (19:45)
[2022-01-26] MEDS ORDERED: NS 1000 ML IV.SOLN IV ONE (19:50)
[2022-01-26] MEDS ORDERED: MIDAZOLAM HCL 5 MG/ML VIAL (VERSED) IV ONE (19:50)
[2022-01-26] MEDS ORDERED: ONDANSETRON HCL 4 MG/2 ML VIAL ONE (19:50)
[2022-01-26] MEDS ORDERED: METOCLOPRAMIDE HCL 10 MG/2 ML VIAL ONE (19:50)
[2022-01-26] MEDS ORDERED: CEFAZOLIN 1 GM IVPB PREMIX 50 ML IV ONE (19:50)
[2022-01-26] MEDS ORDERED: LIDOCAINE 1% 10 MG/ML, 20 ML MDV ONE (19:50)
[2022-01-26] MEDS ORDERED: fentaNYL CITRATE/PF 100 MCG/2 ML AMP ONE (19:50)
[2022-01-26] MEDS ORDERED: HEPARIN SODIUM, PORCINE 10,000 UNITS/ 10 ML VIAL ONE (19:50)
[2022-01-27] MEDS: HYDROcodone/ACETAMIN 5-325 MG TAB (NORCO/ VICODIN) PO PRN (01:08)
[2022-01-27 01:19] VITALS: BP_SYST 108
[2022-01-27 08:00] VITALS: BP_SYST 103
[2022-01-27] MEDS: MORPHINE 4 MG INJ. 4 MG/ML VIAL IVP PRN ×2 (10:03→22:41)
[2022-01-27] MEDS: PANTOPRAZOLE SODIUM 40 MG/VIAL (PROTONIX) IVP SCH (10:03)
[2022-01-27] MEDS: BALSAM PERU/CASTOR OIL 56.7 GM OINT...G. TP SCH (10:03)
[2022-01-27] MEDS: metroNIDAZOLE 500 MG TABLET PO SCH ×2 (10:03→20:58)
[2022-01-27] MEDS: cephALEXin 500 MG CAPSULE PO SCH ×2 (10:03→20:58)
[2022-01-27 12:47] VITALS: BP_SYST 122
[2022-01-27 16:53] VITALS: BP_SYST 109
[2022-01-27 20:00] VITALS: BP_SYST 103; BP_SYST 139; BP_SYST 143
[2022-01-28 01:20] VITALS: BP_SYST 114
[2022-01-28 08:00] VITALS: BP_SYST 105
[2022-01-28] MEDS: BALSAM PERU/CASTOR OIL 56.7 GM OINT...G. TP SCH (10:11)
[2022-01-28] MEDS: cephALEXin 500 MG CAPSULE PO SCH (10:11)
[2022-01-28] MEDS: PANTOPRAZOLE SODIUM 40 MG/VIAL (PROTONIX) IVP SCH (10:11)
[2022-01-28] MEDS: metroNIDAZOLE 500 MG TABLET PO SCH (10:11)
[2022-01-28] MEDS: MORPHINE 4 MG INJ. 4 MG/ML VIAL IVP PRN (10:24)
[2022-01-28 11:28] VITALS: BP_SYST 108
[2022-01-28 15:32] VITALS: BP_SYST 103
[2022-01-29 00:31] VITALS: BP_SYST 124
[2022-01-29] MEDS: metroNIDAZOLE 500 MG TABLET PO SCH ×3 (00:54→20:49)
[2022-01-29] MEDS: MORPHINE 4 MG INJ. 4 MG/ML VIAL IVP PRN ×3 (00:54→20:50)
[2022-01-29] MEDS: cephALEXin 500 MG CAPSULE PO SCH ×3 (00:55→20:49)
[2022-01-29 08:11] VITALS: BP_SYST 108
[2022-01-29] MEDS: PANTOPRAZOLE SODIUM 40 MG/VIAL (PROTONIX) IVP SCH (09:17)
[2022-01-29] MEDS: BALSAM PERU/CASTOR OIL 56.7 GM OINT...G. TP SCH (09:30)
[2022-01-29 10:07] LABS: ANION GAP 9 (5-15); CALCIUM 8.5 mg/dL (8.4-11.0); CHLORIDE 102 mmol/L (98-107); CREATININE 6.14 mg/dL (0.55-1.30); GLUCOSE 126 mg/dL (70-99); PHOSPHORUS 5.7 mg/dL (2.7-4.5); POTASSIUM 3.8 mmol/L (3.5-5.1); UREA NITROGEN, BLOOD 28 mg/dL (8-21)
[2022-01-29 11:52] VITALS: BP_SYST 110
[2022-01-29 14:32] LABS: HEMATOCRIT 27.4 % (36-54); HEMOGLOBIN 8.7 g/dL (14.0-18.0); MEAN CORPUSCULAR HEMOGLOBIN 31 pg (27-31); MEAN CORPUSCULAR HGB CONC 32 % (32-36); MEAN CORPUSCULAR VOLUME 98 fL (79.0-98.0); PLATELET COUNT (AUTO) 305 K/uL (130-430); RED CELL DISTRIBUTION WIDTH 17.4 % (9.0-15.0); WHITE BLOOD COUNT (AUTO) 10.4 K/uL (4.8-10.8)
[2022-01-29 16:24] LABS: BAND % (MANUAL) 2 % (0-6); EOSINOPHILS % (MANUAL) 6 % (0-7); LYMPHOCYTES % (MANUAL) 19 % (20-46); MONOCYTES % (MANUAL) 4 % (0-11)
[2022-01-29 16:25] LABS: BASOPHILS % (MANUAL) 0 % (0-2); METAMYELOCYTES % 1 % (0-0)
[2022-01-29 17:24] VITALS: BP_SYST 119
[2022-01-29 20:25] VITALS: BP_SYST 132
[2022-01-30 01:07] VITALS: BP_SYST 132
[2022-01-30 08:00] VITALS: BP_SYST 125
[2022-01-30] MEDS ORDERED: EPOETIN ALFA-EPBX 3,000 UNITS/ML VIAL SUBCUT ONE (08:15)
[2022-01-30] MEDS: MORPHINE 4 MG INJ. 4 MG/ML VIAL IVP PRN ×2 (09:37→20:42)
[2022-01-30] MEDS: PANTOPRAZOLE SODIUM 40 MG/VIAL (PROTONIX) IVP SCH (09:37)
[2022-01-30] MEDS: cephALEXin 500 MG CAPSULE PO SCH ×2 (09:37→20:33)
[2022-01-30] MEDS: metroNIDAZOLE 500 MG TABLET PO SCH ×2 (09:37→20:32)
[2022-01-30] MEDS: BALSAM PERU/CASTOR OIL 56.7 GM OINT...G. TP SCH (09:38)
[2022-01-30 12:00] VITALS: BP_SYST 116
[2022-01-30 16:00] VITALS: BP_SYST 97
[2022-01-30] MEDS: SEVELAMER CARBONATE 800 MG TABLET PO SCH (18:23)
[2022-01-30 20:29] VITALS: BP_SYST 106
[2022-01-31] VITALS: BP_SYST 106
[2022-01-31] MEDS: MORPHINE 4 MG INJ. 4 MG/ML VIAL IVP PRN (00:49)
[2022-01-31] MEDS: HYDROcodone/ACETAMIN 5-325 MG TAB (NORCO/ VICODIN) PO PRN ×4 (05:25→22:44)
[2022-01-31] MEDS: SEVELAMER CARBONATE 800 MG TABLET PO SCH ×3 (08:00→19:20)
[2022-01-31 08:27] VITALS: BP_SYST 108
[2022-01-31] MEDS: BALSAM PERU/CASTOR OIL 56.7 GM OINT...G. TP SCH (09:00)
[2022-01-31] MEDS: PANTOPRAZOLE SODIUM 40 MG/VIAL (PROTONIX) IVP SCH (09:00)
[2022-01-31 09:52] LABS: TOTAL IRON BIND. CAPACITY 143 ug/dL (250-450)
[2022-01-31 11:37] VITALS: BP_SYST 118
[2022-01-31] MEDS ORDERED: LIDOCAINE PATCH 5% 1 EA TP ONE (14:00)
[2022-01-31 15:38] VITALS: BP_SYST 98
[2022-01-31 20:00] VITALS: BP_SYST 104
[2022-02-01 01:37] VITALS: BP_SYST 98
[2022-02-01 08:44] VITALS: BP_SYST 95
[2022-02-01 08:55] VITALS: BP_SYST 85
[2022-02-01] MEDS: LIDOCAINE PATCH 5% 1 EA TP SCH (09:02)
[2022-02-01] MEDS: SEVELAMER CARBONATE 800 MG TABLET PO SCH ×3 (09:02→18:00)
[2022-02-01] MEDS: BALSAM PERU/CASTOR OIL 56.7 GM OINT...G. TP SCH (09:02)
[2022-02-01] MEDS: PANTOPRAZOLE SODIUM 40 MG/VIAL (PROTONIX) IVP SCH (09:04)
[2022-02-01 12:58] VITALS: BP_SYST 95
[2022-02-01] MEDS: HEPARIN SODIUM,PORCINE 5,000 UNITS/ML VIAL MC PRN ×2 (13:47→13:48)
[2022-02-01 16:00] VITALS: BP_SYST 96
[2022-02-01 20:00] VITALS: BP_SYST 116
[2022-02-01] MEDS: HYDROcodone/ACETAMIN 5-325 MG TAB (NORCO/ VICODIN) PO PRN (21:52)
[2022-02-02] MEDS: HYDROcodone/ACETAMIN 5-325 MG TAB (NORCO/ VICODIN) PO PRN ×4 (01:52→21:05)
[2022-02-02 06:00] VITALS: BP_SYST 103
[2022-02-02] MEDS: PANTOPRAZOLE SODIUM 40 MG/VIAL (PROTONIX) IVP SCH (09:09)
[2022-02-02] MEDS: LIDOCAINE PATCH 5% 1 EA TP SCH (09:09)
[2022-02-02] MEDS: BALSAM PERU/CASTOR OIL 56.7 GM OINT...G. TP SCH (09:09)
[2022-02-02] MEDS: SEVELAMER CARBONATE 800 MG TABLET PO SCH ×3 (09:10→17:23)
[2022-02-02 12:10] VITALS: BP_SYST 107
[2022-02-02 18:08] VITALS: BP_SYST 121
[2022-02-02 20:00] VITALS: BP_SYST 113
[2022-02-03 00:38] VITALS: BP_SYST 115
[2022-02-03] MEDS: HYDROcodone/ACETAMIN 5-325 MG TAB (NORCO/ VICODIN) PO PRN ×3 (03:34→18:29)
[2022-02-03] MEDS: SEVELAMER CARBONATE 800 MG TABLET PO SCH ×3 (07:36→17:19)
[2022-02-03 08:00] VITALS: BP_SYST 109
[2022-02-03] MEDS: BALSAM PERU/CASTOR OIL 56.7 GM OINT...G. TP SCH (08:11)
[2022-02-03] MEDS: PANTOPRAZOLE SODIUM 40 MG/VIAL (PROTONIX) IVP SCH (08:11)
[2022-02-03] MEDS: LIDOCAINE PATCH 5% 1 EA TP SCH (08:11)
[2022-02-03 12:00] VITALS: BP_SYST 111
[2022-02-03 16:00] VITALS: BP_SYST 113
[2022-02-03 19:00] VITALS: BP_SYST 115
[2022-02-03 21:08] VITALS: BP_SYST 114
[2022-02-04] VITALS (7 sets, daily range): BP systolic 101–121
[2022-02-04] MEDS: HYDROcodone/ACETAMIN 5-325 MG TAB (NORCO/ VICODIN) PO PRN ×4 (01:52→20:49)
[2022-02-04] MEDS: PANTOPRAZOLE SODIUM 40 MG/VIAL (PROTONIX) IVP SCH (09:01)
[2022-02-04] MEDS: SEVELAMER CARBONATE 800 MG TABLET PO SCH ×3 (09:01→17:01)
[2022-02-04] MEDS: BALSAM PERU/CASTOR OIL 56.7 GM OINT...G. TP SCH (09:01)
[2022-02-04] MEDS: LIDOCAINE PATCH 5% 1 EA TP SCH (09:01)
[2022-02-05] VITALS: BP_SYST 116
[2022-02-05] MEDS: HYDROcodone/ACETAMIN 5-325 MG TAB (NORCO/ VICODIN) PO PRN ×4 (00:38→21:32)
[2022-02-05 08:00] VITALS: BP_SYST 132
[2022-02-05] MEDS: PANTOPRAZOLE SODIUM 40 MG/VIAL (PROTONIX) IVP SCH (08:49)
[2022-02-05] MEDS: LIDOCAINE PATCH 5% 1 EA TP SCH ×2 (08:49→08:57)
[2022-02-05] MEDS: SEVELAMER CARBONATE 800 MG TABLET PO SCH ×3 (08:49→17:36)
[2022-02-05] MEDS: BALSAM PERU/CASTOR OIL 56.7 GM OINT...G. TP SCH (08:50)
[2022-02-05 12:00] VITALS: BP_SYST 118
[2022-02-05 15:38] VITALS: BP_SYST 112
[2022-02-05 20:00] VITALS: BP_SYST 135
[2022-02-06 00:08] VITALS: BP_SYST 139
[2022-02-06] MEDS: HYDROcodone/ACETAMIN 5-325 MG TAB (NORCO/ VICODIN) PO PRN ×3 (03:49→20:12)
[2022-02-06] MEDS ORDERED: HEPARIN SODIUM,PORCINE 5,000 UNITS/ML VIAL MC ONE ×2 (10:15→15:15)
[2022-02-06] MEDS: LIDOCAINE PATCH 5% 1 EA TP SCH (11:22)
[2022-02-06] MEDS: BALSAM PERU/CASTOR OIL 56.7 GM OINT...G. TP SCH (11:23)
[2022-02-06] MEDS: SEVELAMER CARBONATE 800 MG TABLET PO SCH ×3 (11:23→17:41)
[2022-02-06] MEDS: PANTOPRAZOLE SODIUM 40 MG/VIAL (PROTONIX) IVP SCH (11:23)
[2022-02-06 13:12] VITALS: BP_SYST 123
[2022-02-06 16:34] VITALS: BP_SYST 125
[2022-02-06 20:00] VITALS: BP_SYST 137
[2022-02-07] VITALS: BP_SYST 125
[2022-02-07] MEDS: HYDROcodone/ACETAMIN 5-325 MG TAB (NORCO/ VICODIN) PO PRN ×3 (01:36→16:07)
[2022-02-07 04:00] VITALS: BP_SYST 129
[2022-02-07] MEDS: SEVELAMER CARBONATE 800 MG TABLET PO SCH ×3 (09:42→17:13)
[2022-02-07] MEDS: PANTOPRAZOLE SODIUM 40 MG/VIAL (PROTONIX) IVP SCH (09:43)
[2022-02-07] MEDS: BALSAM PERU/CASTOR OIL 56.7 GM OINT...G. TP SCH (09:44)
[2022-02-07] MEDS: LIDOCAINE PATCH 5% 1 EA TP SCH (09:46)
[2022-02-07 12:00] VITALS: BP_SYST 127
[2022-02-07 16:00] VITALS: BP_SYST 128
[2022-02-07 16:18] VITALS: BP_SYST 128
[2022-02-07 20:00] VITALS: BP_SYST 138
[2022-02-08] VITALS: BP_SYST 127
[2022-02-08] MEDS: HYDROcodone/ACETAMIN 5-325 MG TAB (NORCO/ VICODIN) PO PRN ×3 (01:28→14:13)
[2022-02-08 04:00] VITALS: BP_SYST 121
[2022-02-08 08:00] VITALS: BP_SYST 120
[2022-02-08] MEDS: PANTOPRAZOLE SODIUM 40 MG/VIAL (PROTONIX) IVP SCH (09:07)
[2022-02-08] MEDS: BALSAM PERU/CASTOR OIL 56.7 GM OINT...G. TP SCH (09:07)
[2022-02-08] MEDS: SEVELAMER CARBONATE 800 MG TABLET PO SCH ×3 (09:07→18:58)
[2022-02-08] MEDS: LIDOCAINE PATCH 5% 1 EA TP SCH (09:07)
[2022-02-08] MEDS: HEPARIN SODIUM,PORCINE 5,000 UNITS/ML VIAL MC PRN (11:55)
[2022-02-08] MEDS ORDERED: HEPARIN SODIUM,PORCINE 5,000 UNITS/ML VIAL MC ONE ×2 (12:00)
[2022-02-08 13:31] VITALS: BP_SYST 112
[2022-02-08 16:07] VITALS: BP_SYST 117
[2022-02-08 19:44] VITALS: BP_SYST 136
[2022-02-09] VITALS: BP_SYST 107
== END 2022-02-09 00:44 | DRG 871 ==
LOC: SED 17:58 → SIC 21:52 → STU 01-12 18:28 → SMU 01-15 13:38
PROVIDERS: ADMIT Internal Medicine; ATTEND Internal Medicine
PROC: 02HV33Z Insertion of Infusion Device into Superior Vena Cava, Percutaneous Approach (ICD-10-PCS; principal; 2022-01-11)
PROC: B548ZZA Ultrasonography of Superior Vena Cava, Guidance (ICD-10-PCS; 2022-01-11)
PROC: 5A1D70Z Performance of Urinary Filtration, Intermittent, Less than 6 Hours Per Day (ICD-10-PCS; 2022-01-11)
PROC: 5A1D70Z Performance of Urinary Filtration, Intermittent, Less than 6 Hours Per Day (ICD-10-PCS; 2022-01-12)
PROC: 5A1D70Z Performance of Urinary Filtration, Intermittent, Less than 6 Hours Per Day (ICD-10-PCS; 2022-01-13)
PROC: 5A1D70Z Performance of Urinary Filtration, Intermittent, Less than 6 Hours Per Day (ICD-10-PCS; 2022-01-16)
PROC: 5A1D70Z Performance of Urinary Filtration, Intermittent, Less than 6 Hours Per Day (ICD-10-PCS; 2022-01-18)
PROC: 5A1D70Z Performance of Urinary Filtration, Intermittent, Less than 6 Hours Per Day (ICD-10-PCS; 2022-01-19)
PROC: 5A1D70Z Performance of Urinary Filtration, Intermittent, Less than 6 Hours Per Day (ICD-10-PCS; 2022-01-24)
PROC: 02PYX3Z Removal of Infusion Device from Great Vessel, External Approach (ICD-10-PCS; 2022-01-26)
PROC: 02HV33Z Insertion of Infusion Device into Superior Vena Cava, Percutaneous Approach (ICD-10-PCS; 2022-01-26)
PROC: B548ZZA Ultrasonography of Superior Vena Cava, Guidance (ICD-10-PCS; 2022-01-26)
PROC: 5A1D70Z Performance of Urinary Filtration, Intermittent, Less than 6 Hours Per Day (ICD-10-PCS; 2022-01-27)
PROC: 5A1D70Z Performance of Urinary Filtration, Intermittent, Less than 6 Hours Per Day (ICD-10-PCS; 2022-01-30)
PROC: 30233N1 Transfusion of Nonautologous Red Blood Cells into Peripheral Vein, Percutaneous Approach (ICD-10-PCS; 2022-02-02)
PROC: 5A1D70Z Performance of Urinary Filtration, Intermittent, Less than 6 Hours Per Day (ICD-10-PCS; 2022-02-02)
PROC: 5A1D70Z Performance of Urinary Filtration, Intermittent, Less than 6 Hours Per Day (ICD-10-PCS; 2022-02-06)
PROC: 5A1D70Z Performance of Urinary Filtration, Intermittent, Less than 6 Hours Per Day (ICD-10-PCS; 2022-02-08)
DX: A41.9 Sepsis, unspecified organism (principal); N17.0 Acute kidney failure with tubular necrosis; N18.6 End stage renal disease; M86.9 Osteomyelitis, unspecified; E87.2 Acidosis; C20 Malignant neoplasm of rectum; I12.0 Hypertensive chronic kidney disease with stage 5 chronic kidney disease or end stage renal disease; K60.3 Anal fistula; K60.2 Anal fissure, unspecified; E87.6 Hypokalemia; Z20.822 Contact with and (suspected) exposure to COVID-19; K62.89 Other specified diseases of anus and rectum; Z93.3 Colostomy status; Z85.048 Personal history of other malignant neoplasm of rectum, rectosigmoid junction, and anus; Z90.49 Acquired absence of other specified parts of digestive tract; Z92.3 Personal history of irradiation
CPT/HCPCS: 36415; 71045; 72131; 72132-TC; 74018; 76000; 76376; 76770; 80048; 80053; 80074; 80202; 81000; 82009; 82533; 82550; 83540; 83550; 83605; 83735; 83970; 84100; 84132; 85007; 85025; 85027; 85610-TC; 86480; 86706; 86803; 86886; 86900; 86901; 86920; 87040; 87070-TC; 87075-TC; 87081; 87230-TC; 90935; 90937; 93005; 94010; 97110-GO; 97110-GP; 97112-GP; 97116-GP; 97530-GO; 97530-GP; 97535-GO; 99291; C1750; C9113; G0378; J0690; J0696; J1450; J1644; J2001; J2250; J2270; J2405; J2543; J2765; J3010; J3370; J3480; J3490; J7030; J7050; J7060; P9021; P9046; Q5106; Q9967

== ENCOUNTER 2022-05-25 11:34 | Inpatient (IN) | payer OTHER ==
[~2022-05-25] VITALS: Ht 182.9 cm; Wt 70.8 kg
[2022-05-25 12:01] VITALS: BP_SYST 120
[2022-05-25 14:03] LABS: BASOPHILS # (AUTO) 0.2 K/uL (0.0-0.2); BASOPHILS % (AUTO) 0.9 % (0.0-2.0); EOSINOPHILS # (AUTO) 0.1 K/uL (0.0-0.4); EOSINOPHILS % (AUTO) 0.5 % (0.0-4.0); HEMATOCRIT 36.3 % (36-54); HEMOGLOBIN 11.8 g/dL (14.0-18.0); LYMPHOCYTES # (AUTO) 2.4 K/uL (1.0-5.5); LYMPHOCYTES % (AUTO) 11.2 % (20.5-51.5); MEAN CORPUSCULAR HEMOGLOBIN 31 pg (27-31); MEAN CORPUSCULAR HGB CONC 33 % (32-36); MEAN CORPUSCULAR VOLUME 94 fL (79.0-98.0); MONOCYTES # (AUTO) 1.3 K/uL (0.0-1.0); NEUTROPHILS # (AUTO) 17.8 K/uL (1.8-7.7); NEUTROPHILS % (AUTO) 81.4 % (40.0-70.0); PLATELET COUNT (AUTO) 287 K/uL (130-430); RED BLOOD CELL COUNT(AUTO) 3.87 MIL/uL (4.2-6.2); RED CELL DISTRIBUTION WIDTH 19.4 % (9.0-15.0); WHITE BLOOD COUNT (AUTO) 21.8 K/uL (4.8-10.8)
[2022-05-25 14:16] LABS: ANION GAP 17 (5-15); CALCIUM 9.4 mg/dL (8.4-11.0); CHLORIDE 100 mmol/L (98-107); CREATININE 3.78 mg/dL (0.55-1.30); GLUCOSE 199 mg/dL (70-99); UREA NITROGEN, BLOOD 99 mg/dL (8-21)
[2022-05-25 14:23] LABS: ALANINE AMINOTRANSFERASE 56 U/L (12-78); ALBUMIN 3.2 g/dL (3.4-4.8); ASPARTATE AMINOTRANSFERASE 32 U/L (10-37); TOTAL BILIRUBIN 0.3 mg/dL (0.0-1.0)
--- NOTE | 2022-05-25 16:07 | NUR ---
Placed in room 03 . Placed on cardiac cath lab radiology technologist, blood pressure machine and pulse oximeter. To gown for exam. Side rails up. Report given to aislinn barger
--- NOTE | 2022-05-25 17:00 | NUR ---
PT BIBA AWAKE AND ALERT, AOX4. NO SOB OR DISTRESS. PT PCP SENT HIM IN FOR ABNORMAL LABS. ELEVATED WBC AND BUN, CREATINE. PT C/O PAIN TO SACRAL AREA WITH 7 CM DIAMETER UNSTAGABLE PRESSURE ULCER. PT HAS COLOSTOMY BAG. HX OF COLON CANCERBPH, GERD, HTN,
--- NOTE | 2022-05-25 17:05 | NUR ---
MD DR SEWELL AT BEDSIDE
[2022-05-25] MEDS ORDERED: VANCOMYCIN HCL 1,000 MG in NS 250 ML IV ONE (18:00)
[2022-05-25] MEDS ORDERED: PIPERACILLIN/TAZO 3.375 GM in NS 50 ML IV ONE (18:00)
[2022-05-25] MEDS ORDERED: NACL 0.9% 1,000 ML IV ONE ×2 (18:15→19:45)
[2022-05-25] MEDS ORDERED: PIPERACILLIN/TAZOBACTAM 3.375 GM/VIAL (ZOSYN) IV ONE (18:44)
[2022-05-25] MEDS ORDERED: MORPHINE 2 MG/ML INJ. SYRINGE IVP ONE (19:00)
[2022-05-25 19:16] LABS: BILIRUBIN,URINE NEGATIVE (NEGATIVE); BLOOD, URINE NEGATIVE (NEGATIVE); CLARITY/URINE CLEAR (CLEAR); COLOR,URINE YELLOW (YELLOW); GLUCOSE,URINE NEGATIVE (NEGATIVE); KETONES,URINE NEGATIVE (NEGATIVE); LEUKOCYTE ESTERASE ,URINE NEGATIVE (NEGATIVE); NITRITE, URINE NEGATIVE (NEGATIVE); PH,URINE 5.5 (5.0-8.0); PROTEIN URINE TRACE (NEGATIVE); UROBILINOGEN,URINE 0.2 (0.2-1.0)
--- NOTE | 2022-05-25 19:25 | NUR ---
REPORT GIVEN TO BUFFY HARDY PT IN STABLE CONDITION. VSS
--- NOTE | 2022-05-25 19:42 | NUR ---
Admit bed requested Patient will be admitted to care of Dr.Singh Mirnada Admitted to tele unit. Diagnosis infectious decubitis Inpatient (Yes or No) y Observation (Yes or No) n Orientation concerns or request close to nursing station (Yes or No) n Covid Status pending On vent or bipap n Isolation requirements n Needs a sitter n From Home (Yes or if No enter name of facility) [facility] facility Requires Dialysis (Yes or No) n Med Rec Completed (Yes of No) pending
[2022-05-25] MEDS ORDERED: VANCOMYCIN HCL 1000 MG/VIAL IV ONE (19:47)
[2022-05-25 20:14] LABS: RBC,URINE NONE SEEN /HPF (0-3); WBC,URINE 0-3 /HPF (0-3)
[2022-05-25 20:15] LABS: BACTERIA,URINE FEW /HPF (None Seen); COARSE GRANULAR CASTS,URINE 0-10 /LPF (None Seen); MUCUS,URINE 1+ /LPF (None Seen); URINE AMORPHOUS URATE 1+ /HPF (None Seen)
[2022-05-25] MEDS ORDERED: ONDANSETRON HCL 4 MG/2 ML VIAL IVP PRN (20:15)
[2022-05-25] MEDS ORDERED: POTASSIUM CHLORIDE 20 MEQ TAB.PRT.SR PO PRN (20:15)
[2022-05-25] MEDS ORDERED: MAGNESIUM SULFATE 50 ML IV PRN (20:15)
[2022-05-25] MEDS ORDERED: MUPIROCIN 2% TOPICAL OINTMENT 22 GM NS PRN (20:15)
[2022-05-25] MEDS ORDERED: NALOXONE HCL 0.4 MG/ML AMP (NARCAN) IVP PRN ×2 (20:15)
[2022-05-25] MEDS ORDERED: DOCUSATE SODIUM 100 MG CAPSULE PO PRN (20:15)
--- NOTE | 2022-05-25 20:15 | NUR ---
PROVIDED PATIENT WITH WATER AND REPOSITIONED FOR COMFORT.
[2022-05-25] MEDS: HEPARIN SODIUM,PORCINE 5,000 UNITS/ML VIAL SUBCUT SCH (21:49)
[2022-05-25] MEDS: MORPHINE 2 MG/ML INJ. SYRINGE IVP PRN (21:53)
[2022-05-25] MEDS: ZOLPIDEM TARTRATE 5 MG TABLET PO PRN (21:55)
--- NOTE | 2022-05-25 23:15 | NUR ---
PATIENT POSITIONED FOR COMFORT. PATIENT IN PAIN 8/10 AT SACRAL WOUND
[2022-05-26] MEDS: MORPHINE 2 MG/ML INJ. SYRINGE IVP PRN ×2 (00:28→04:35)
--- NOTE | 2022-05-26 00:40 | NUR ---
Patient reports pain 8/10 20 minutes after administration of morphine. No adverse reactions noted. Will continue to monitor.
--- NOTE | 2022-05-26 01:26 | NUR ---
PATIENT POSITIONED FOR COMFORT. PATIENT IN PAIN 7/10 AT SACRAL WOUND
--- NOTE | 2022-05-26 02:18 | NUR ---
800 ml yellow non cloudy urine collected from ornelas bag.
--- NOTE | 2022-05-26 03:22 | NUR ---
PATIENT POSITIONED FOR COMFORT. PATIENT IN PAIN 6/10 AT SACRAL WOUND
--- NOTE | 2022-05-26 04:24 | NUR ---
PATIENT POSITIONED FOR COMFORT. PATIENT IN PAIN 6/10 AT SACRAL WOUND
[2022-05-26] MEDS ORDERED: TAMS0.4C96 PO (04:45)
[2022-05-26] MEDS ORDERED: MIDO10TA PO (04:45)
[2022-05-26] MEDS ORDERED: APIX5TAB PO (04:45)
[2022-05-26] MEDS ORDERED: GABA-529 PO (04:45)
[2022-05-26] MEDS ORDERED: OXYC5TAB3 PO (04:45)
--- NOTE | 2022-05-26 06:24 | NUR ---
PATIENT POSITIONED FOR COMFORT. PATIENT IN PAIN 6/10 AT SACRAL WOUND
--- NOTE | 2022-05-26 07:45 | NUR ---
CONSULT: CONSULT FOR DR ABDULLAHI SALGUERO CONSULT ORDERED BY DR KENNEDY REASON FOR CONSULT- INFECTED DECUB ULCER SPOKE WITH DAVID
--- NOTE | 2022-05-26 07:56 | NUR ---
CONSULT CALLED FOR DR CARNES ORDERED BY DR KENNEDY REASON- RENAL FAILURE [id number] SPOKE WITH DAVID
[2022-05-26] MEDS ORDERED: DEXTROSE 50% JECT 50 ML DISP.SYRIN IVP PRN (08:00)
--- NOTE | 2022-05-26 08:33 | NUR ---
SPOKE WITH DR SHEPARD, PATIENT WAS HIS PATIENT REGISTRATION HAD PRINTED A FIRST FACESHEET OUT WITH THE INSURANCE MEDICARE A&B SECOND FACESHEET AFTER ADMISSION IS [facility] INSURANCE MADE DR KENNEDY AWARE, HE STATED TO CHANGE THE ADMITTING DR TO DR SHEPARD.
[2022-05-26] MEDS: oxyCODONE HCL 5 MG TABLET PO SCH ×2 (09:00→21:36)
--- NOTE | 2022-05-26 09:22 | NUR ---
WITH OTHER MEDICAL STAFF ASSISTANCE, PT'S WOUND DRESSING WAS CHANGED. CLOSTOMY BAG WAS EMPTIED. BEDBATH DONE, PT'S CARE DONE BY THE WAY.
--- NOTE | 2022-05-26 09:32 | NUR ---
SPOKE WITH CONRAD, HEAD OF ADMITTING, PATIENT HAS MEDICARE A&B AND IS DR RIOS PATIENT. MAKING DR SHEPARD AWARE
--- NOTE | 2022-05-26 10:12 | NUR ---
MD KENNEDY BEDSIDE WITH PT SON GIVING UPDATE OF CARE PLAN.
[2022-05-26 10:20] LABS: ANION GAP 14 (5-15); CALCIUM 8.8 mg/dL (8.4-11.0); CHLORIDE 104 mmol/L (98-107); CREATININE 3.68 mg/dL (0.55-1.30); GLUCOSE 129 mg/dL (70-99); HEMATOCRIT 32.2 % (36-54); HEMOGLOBIN 10.4 g/dL (14.0-18.0); MEAN CORPUSCULAR HEMOGLOBIN 30 pg (27-31); MEAN CORPUSCULAR HGB CONC 32 % (32-36); MEAN CORPUSCULAR VOLUME 94 fL (79.0-98.0); PLATELET COUNT (AUTO) 311 K/uL (130-430); RED BLOOD CELL COUNT(AUTO) 3.43 MIL/uL (4.2-6.2); RED CELL DISTRIBUTION WIDTH 19.1 % (9.0-15.0); UREA NITROGEN, BLOOD 96 mg/dL (8-21); WHITE BLOOD COUNT (AUTO) 23.5 K/uL (4.8-10.8)
[2022-05-26] MEDS ORDERED: GABAPENTIN 300 MG CAPSULE PO ONE (10:30)
[2022-05-26] MEDS: TAMSULOSIN HCL 0.4 MG CAP PO SCH (11:09)
[2022-05-26] MEDS: HEPARIN SODIUM,PORCINE 5,000 UNITS/ML VIAL SUBCUT SCH ×2 (11:14→21:39)
[2022-05-26 11:49] LABS: VANCOMYCIN,RANDOM 10.7 ug/mL
[2022-05-26 12:56] LABS: BAND % (MANUAL) 7 % (0-6); BASOPHILS % (MANUAL) 0 % (0-2); EOSINOPHILS % (MANUAL) 1 % (0-7); LYMPHOCYTES % (MANUAL) 13 % (20-46); MONOCYTES % (MANUAL) 6 % (0-11)
--- NOTE | 2022-05-26 15:32 | NUR ---
PT WOKE UP. LUNCH WARDED UP AND OFFERED TO PT. SON BEDSIDE TO HELP PT TO EAT.
[2022-05-26] MEDS: GABAPENTIN 300 MG CAPSULE PO SCH ×2 (17:35→21:34)
--- NOTE | 2022-05-26 18:19 | NUR ---
URINE OUTPUT 1200ML
[2022-05-26] MEDS ORDERED: VANCOMYCIN HCL 1,000 MG in NS 250 ML IV ONE (19:00)
--- NOTE | 2022-05-26 19:02 | NUR ---
WITH KEON DÍAZ'S ASSISANCE, COLOSTOMY BAG CLEANED ONE MORE TIME.
--- NOTE | 2022-05-26 20:00 | NUR ---
Received pt up in bed in no apparent distress. Repositioned for comfort. VSS.
[2022-05-27 05:36] LABS: BASOPHILS # (AUTO) 0.1 K/uL (0.0-0.2); BASOPHILS % (AUTO) 0.5 % (0.0-2.0); EOSINOPHILS # (AUTO) 0.3 K/uL (0.0-0.4); EOSINOPHILS % (AUTO) 1.2 % (0.0-4.0); HEMATOCRIT 30.5 % (36-54); LYMPHOCYTES # (AUTO) 2.5 K/uL (1.0-5.5); LYMPHOCYTES % (AUTO) 11.6 % (20.5-51.5); MEAN CORPUSCULAR HEMOGLOBIN 31 pg (27-31); MEAN CORPUSCULAR HGB CONC 33 % (32-36); MEAN CORPUSCULAR VOLUME 93 fL (79.0-98.0); MONOCYTES # (AUTO) 1.2 K/uL (0.0-1.0); MONOCYTES % (AUTO) 5.7 % (1.7-9.3); NEUTROPHILS # (AUTO) 17.1 K/uL (1.8-7.7); PLATELET COUNT (AUTO) 295 K/uL (130-430); RED BLOOD CELL COUNT(AUTO) 3.28 MIL/uL (4.2-6.2); RED CELL DISTRIBUTION WIDTH 18.7 % (9.0-15.0); WHITE BLOOD COUNT (AUTO) 21.1 K/uL (4.8-10.8)
[2022-05-27 06:15] LABS: ANION GAP 14 (5-15); CALCIUM 9.1 mg/dL (8.4-11.0); CHLORIDE 106 mmol/L (98-107); CREATININE 3.85 mg/dL (0.55-1.30); GLUCOSE 110 mg/dL (70-99); UREA NITROGEN, BLOOD 89 mg/dL (8-21)
--- NOTE | 2022-05-27 07:25 | NUR ---
400 cc of clr/yellow urine emptied from FC.
--- NOTE | 2022-05-27 07:30 | NUR ---
RECEIVED PT FROM BUFFY ROLDAN. ASSUMED CARE.
--- NOTE | 2022-05-27 08:31 | NUR ---
DR. RODRIGUEZ AT BEDSIDE TO ASSESS PT.
--- NOTE | 2022-05-27 09:23 | NUR ---
SPOKE TO DR. RODRIGUEZ BY PHONE HE STATED TO DISCONTINUE PT'S HD ORDER FOR TODAY, MONITOR I and Os. Change diet to renal.
--- NOTE | 2022-05-27 11:32 | NUR ---
HEPARIN SQ HELD PT DOES NOT HAVE APTT, APTT, PT, INR ORDERED AT THIS TIME.
--- NOTE | 2022-05-27 11:33 | NUR ---
JULI PHARMACIST STATED TO PLEASE OVERRIDE OXYCONTIN FROM E. R. PYXIS. BUFFY CHAVEZ WITNESSED.
[2022-05-27] MEDS: GABAPENTIN 300 MG CAPSULE PO SCH ×3 (11:38→20:39)
[2022-05-27] MEDS: TAMSULOSIN HCL 0.4 MG CAP PO SCH (11:38)
[2022-05-27] MEDS: oxyCODONE HCL 5 MG TABLET PO SCH ×2 (11:39→20:40)
[2022-05-27 12:18] LABS: PROTHROMBIN TIME 10.4 SECS (9.5-12.5)
--- NOTE | 2022-05-27 15:01 | NUR ---
SPOKE TO DR. CROWE BY PHONE AND UPDATED HIM ON PT.
[2022-05-27 15:26] LABS: HEMATOCRIT 30.6 % (36-54); HEMOGLOBIN 9.9 g/dL (14.0-18.0); MEAN CORPUSCULAR HEMOGLOBIN 30 pg (27-31); MEAN CORPUSCULAR HGB CONC 32 % (32-36); MEAN CORPUSCULAR VOLUME 94 fL (79.0-98.0); PLATELET COUNT (AUTO) 280 K/uL (130-430); RED BLOOD CELL COUNT(AUTO) 3.27 MIL/uL (4.2-6.2); RED CELL DISTRIBUTION WIDTH 18.9 % (9.0-15.0); WHITE BLOOD COUNT (AUTO) 19.5 K/uL (4.8-10.8)
--- NOTE | 2022-05-27 16:00 | NUR ---
PT GIVEN PARTIAL BEDBATH, DRESSING CHANGE, LINEN AND GOWN CHANGE.
[2022-05-27] MEDS: HEPARIN SODIUM,PORCINE 5,000 UNITS/ML VIAL SUBCUT SCH ×2 (16:07→20:41)
[2022-05-27 16:15] LABS: BAND % (MANUAL) 5 % (0-6); BASOPHILS % (MANUAL) 0 % (0-2); EOSINOPHILS % (MANUAL) 1 % (0-7); LYMPHOCYTES % (MANUAL) 12 % (20-46); METAMYELOCYTES % 2 % (0-0); MONOCYTES % (MANUAL) 5 % (0-11); MYELOCYTES % 1 % (0-0)
[2022-05-27] MEDS: INSULIN LISPRO SLIDING SCALE 100 UNITS/ML, 3 ML VIAL (humaLOG) SUBCUT PRN (17:19)
[2022-05-27] MEDS: PIPERACILLIN/TAZO 2.25G/DEX-IS 50 ML IV SCH ×2 (17:19→23:30)
--- NOTE | 2022-05-27 20:07 | NUR ---
PT ENDORSED TO BUFFY JARAMILLO. ALL QUESTIONS AND CONCERNS ADDRESSED.
--- NOTE | 2022-05-27 20:07 | NUR ---
Pt report received. Pt AAOx3, VSS, NAD. No needs verbalized at this time.
[2022-05-27] MEDS: VANCOMYCIN HCL 750 MG in NS 250 ML IV SCH (20:39)
--- NOTE | 2022-05-27 20:40 | NUR ---
Pt c/o sacral pain. Medicated with Oxycodone 5 mg PO.
--- NOTE | 2022-05-27 21:00 | NUR ---
received report from BUFFY Brock for continuation of care. Patient has 24 g on left forearm. Patient sleepiung. voiced no complaints at this time. VSS
--- NOTE | 2022-05-27 22:00 | NUR ---
Patient asleep. chest rise and fall noted.
--- NOTE | 2022-05-27 23:00 | NUR ---
Patient asleep. chest rise and fall noted. vss
--- NOTE | 2022-05-28 | NUR ---
Patient asleep. chest rise and fall noted.
--- NOTE | 2022-05-28 01:00 | NUR ---
Patient asleep. chest rise and fall noted.
--- NOTE | 2022-05-28 02:00 | NUR ---
Patient asleep. chest rise and fall noted.
--- NOTE | 2022-05-28 03:00 | NUR ---
Patient asleep. chest rise and fall noted. VSS
--- NOTE | 2022-05-28 04:01 | NUR ---
Patient asleep. chest rise and fall noted. NO acute distree noted at this time
[2022-05-28] MEDS: PIPERACILLIN/TAZO 2.25G/DEX-IS 50 ML IV SCH ×3 (06:23→17:14)
--- NOTE | 2022-05-28 06:34 | NUR ---
Note undone in EDM - 05/28/22 at 0634 by SDEDCJM Phleb at bedside for PTT draw. Swelling noted around LFA angiocath. Patient reports pain. Infusion stopped and angiocath removed. Dr. Barrett called and notified. No new orders.
--- NOTE | 2022-05-28 06:35 | NUR ---
# 22 gauge angiocath placed to right hand. Use of asceptic technique. Opsite placed over site. Blood return noted. Flushed with 10 cc of normal saline. No evidence of infiltration noted. Patient tolerated well.
--- NOTE | 2022-05-28 07:09 | NUR ---
report given to BUFFY Escobar for continuation of care
--- NOTE | 2022-05-28 07:30 | NUR ---
1200 cc urine emptied for ornelas.
--- NOTE | 2022-05-28 08:00 | NUR ---
colostomy bag emptied.
[2022-05-28 08:08] LABS: BASOPHILS # (AUTO) 0.1 K/uL (0.0-0.2); BASOPHILS % (AUTO) 0.7 % (0.0-2.0); EOSINOPHILS # (AUTO) 0.2 K/uL (0.0-0.4); EOSINOPHILS % (AUTO) 1.2 % (0.0-4.0); HEMATOCRIT 33.3 % (36-54); HEMOGLOBIN 10.7 g/dL (14.0-18.0); LYMPHOCYTES # (AUTO) 2.4 K/uL (1.0-5.5); LYMPHOCYTES % (AUTO) 11.9 % (20.5-51.5); MEAN CORPUSCULAR HEMOGLOBIN 30 pg (27-31); MEAN CORPUSCULAR HGB CONC 32 % (32-36); MEAN CORPUSCULAR VOLUME 94 fL (79.0-98.0); MONOCYTES # (AUTO) 0.9 K/uL (0.0-1.0); MONOCYTES % (AUTO) 4.7 % (1.7-9.3); NEUTROPHILS # (AUTO) 16.4 K/uL (1.8-7.7); NEUTROPHILS % (AUTO) 81.5 % (40.0-70.0); PLATELET COUNT (AUTO) 275 K/uL (130-430); RED BLOOD CELL COUNT(AUTO) 3.54 MIL/uL (4.2-6.2); RED CELL DISTRIBUTION WIDTH 19.2 % (9.0-15.0); WHITE BLOOD COUNT (AUTO) 20.2 K/uL (4.8-10.8)
--- NOTE | 2022-05-28 08:20 | NUR ---
CONSULTATION PAGED/CALLED Reason for Consultation: [] INFECTED SACRAL WOUND Person Who was Notified: [] DR CROWE Consulting Physician: [] DR DELIA CROWE Stranner Specialty: [] SURGEON Ordering Physician: [] DR KENNEDY
[2022-05-28 08:22] LABS: ANION GAP 12 (5-15); CALCIUM 8.9 mg/dL (8.4-11.0); CHLORIDE 107 mmol/L (98-107); CREATININE 4.08 mg/dL (0.55-1.30); GLUCOSE 149 mg/dL (70-99); UREA NITROGEN, BLOOD 85 mg/dL (8-21)
--- NOTE | 2022-05-28 08:45 | NUR ---
Patient will be admitted to care of Dr. Khan. Admitted to Telemetry unit. Will go to room 101A. Belongings list completed. Complete and up to date summary report printed. SBAR report to be given at bedside with opportunity for questions.
[2022-05-28] MEDS: oxyCODONE HCL 5 MG TABLET PO SCH ×2 (09:06→22:23)
[2022-05-28] MEDS: GABAPENTIN 300 MG CAPSULE PO SCH ×3 (09:06→22:24)
[2022-05-28] MEDS: TAMSULOSIN HCL 0.4 MG CAP PO SCH (09:06)
[2022-05-28] MEDS: HEPARIN SODIUM,PORCINE 5,000 UNITS/ML VIAL SUBCUT SCH ×2 (09:11→22:29)
[2022-05-28 09:24] VITALS: BP_SYST 101
--- NOTE | 2022-05-28 10:00 | NUR ---
Patient arrived to hospital unit via gurney. No distress noted. Patient vital signs stable. Oxygen dips down to 89%. Dr. Barrett made aware. Patient ok to have 2L NC. Patient turned as appropriate. Pictures taken. New orders noted and carried out. Family members aware that patient in new hospital room. Alert and oriented x2-3 with hard of hearing. Patient compliant with changing linens on bed. Belongings with patient.
[2022-05-28 11:21] VITALS: BP_SYST 94
[2022-05-28 15:59] VITALS: BP_SYST 92
--- NOTE | 2022-05-28 16:38 | NUR ---
PICC line in place.
[2022-05-28] MEDS: INSULIN LISPRO SLIDING SCALE 100 UNITS/ML, 3 ML VIAL (humaLOG) SUBCUT PRN ×2 (17:14→22:27)
[2022-05-28 21:00] VITALS: BP_SYST 114
[2022-05-28] MEDS: VANCOMYCIN HCL 750 MG in NS 250 ML IV SCH (22:22)
[2022-05-28] MEDS: ZOLPIDEM TARTRATE 5 MG TABLET PO PRN (22:23)
--- NOTE | 2022-05-29 | NUR ---
PATIENT NPO and made aware for possible SURGERY OF SACARAL AREAS .
[2022-05-29 02:00] VITALS: BP_SYST 135
--- NOTE | 2022-05-29 06:34 | NUR ---
COLLECTOMY BAG EMPTY X 2 THIS SHIFT / . Addendum: 05/29/22 at 0636 by Jesus Alberto Schilling RN 800 ML EACH
[2022-05-29 06:46] LABS: BASOPHILS # (AUTO) 0.1 K/uL (0.0-0.2); BASOPHILS % (AUTO) 0.8 % (0.0-2.0); EOSINOPHILS # (AUTO) 0.3 K/uL (0.0-0.4); EOSINOPHILS % (AUTO) 1.7 % (0.0-4.0); HEMATOCRIT 26.6 % (36-54); HEMOGLOBIN 8.8 g/dL (14.0-18.0); LYMPHOCYTES # (AUTO) 2.5 K/uL (1.0-5.5); LYMPHOCYTES % (AUTO) 14.7 % (20.5-51.5); MEAN CORPUSCULAR HEMOGLOBIN 31 pg (27-31); MEAN CORPUSCULAR HGB CONC 33 % (32-36); MEAN CORPUSCULAR VOLUME 93 fL (79.0-98.0); MONOCYTES % (AUTO) 5.9 % (1.7-9.3); NEUTROPHILS % (AUTO) 76.9 % (40.0-70.0); PLATELET COUNT (AUTO) 269 K/uL (130-430); RED BLOOD CELL COUNT(AUTO) 2.86 MIL/uL (4.2-6.2); RED CELL DISTRIBUTION WIDTH 18.6 % (9.0-15.0); WHITE BLOOD COUNT (AUTO) 16.9 K/uL (4.8-10.8)
[2022-05-29] MEDS: PIPERACILLIN/TAZO 2.25G/DEX-IS 50 ML IV SCH ×4 (07:10→18:16)
[2022-05-29] MEDS: INSULIN LISPRO SLIDING SCALE 100 UNITS/ML, 3 ML VIAL (humaLOG) SUBCUT PRN ×2 (07:17→18:16)
--- NOTE | 2022-05-29 07:30 | NUR ---
RN OPENING NOTE REPORT WAS ENDORSED BY NIGHT NURSE. PATIENT APPEARS TO BE RESTING WITH NO SIGNS OF ANY DISTRESS.BREATHING IS EQUAL AND NON LABORED. PATIENT HAS NO OTHER NEEDS AT THIS TIME.
[2022-05-29 07:58] LABS: ANION GAP 13 (5-15); CALCIUM 8.4 mg/dL (8.4-11.0); CHLORIDE 108 mmol/L (98-107); CREATININE 4.23 mg/dL (0.55-1.30); GLUCOSE 146 mg/dL (70-99); UREA NITROGEN, BLOOD 78 mg/dL (8-21)
[2022-05-29 08:00] VITALS: BP_SYST 106
[2022-05-29] MEDS: HEPARIN SODIUM,PORCINE 5,000 UNITS/ML VIAL SUBCUT SCH ×2 (08:28→21:00)
[2022-05-29] MEDS: GABAPENTIN 300 MG CAPSULE PO SCH ×3 (08:29→21:03)
[2022-05-29] MEDS: oxyCODONE HCL 5 MG TABLET PO SCH ×2 (08:29→21:03)
[2022-05-29] MEDS: TAMSULOSIN HCL 0.4 MG CAP PO SCH (08:29)
--- NOTE | 2022-05-29 10:20 | NUR ---
CONSULT SURGERY FRANCISCO CATHETER DR DOWLING,KIRIT [phone] DR NAWAF ROBLEDO RESOURCE SPECIALIST LEFT ON DR MCCRACKEN'S CELL PHONE
--- NOTE | 2022-05-29 10:39 | NUR ---
DR. CROWE SPOKE WITH REGARDING UNABLE TO OBTAIN CONSENT DUE TO FAMILY MEMBER IS NOT ANSWERING PHONE. LEFT TWO VOICEMAILS TO CALL US BACK WITH PHONE NUMBER PROVIDED. ALSO TRIED CALLING THE FACILITY TO OBTAIN ANY OTHERS NUMBERS BUT THEY WERE IN A MEETING UNABLE TO AT THIS TIME . PER DR. CROWE OK TO CONTINUE OLD DIET AND FEED PATIENT. WILL RESCHEDULED SURGERY FOR ANOTHER TIME. PATIENT IS UNABLE TO GIVE CONSENT DUE TO CONFUSION HE BELIEVES HE IS AT HOME ATTEMPTED TO REORIENT BUT STILL CONFUSED. CONSULT CALLED FOR LEFT MESSAGE TO CALL BACK. PATIENT IS AWAKE AND ALERT NO SIGNS OF ANY DISTRESS, BREATHING IS EQUAL AND NON LABORED. EDUCATED GIG TENDER LIGHT FOR ASSISTANCE. CALL LIGHT IS WITH HIM. PATIENT HAS NO OTHER NEEDS AT THIS TIME. TAVERA CATHETER DRAINING TO GRAVITY. NO OTHER NEEDS AT THIS TIME.
[2022-05-29 11:23] VITALS: BP_SYST 99
--- NOTE | 2022-05-29 11:49 | NUR ---
ACCU CHECK/ MEDICATION PATIENTS SCHEDULED MEDICATION GIVEN PER ORDER. PATIENTS ACCU CHECK DONE NO COVERAGE NEEDED. SPOKE WITH PATIENTS SON AND OBTAINED CONSENT FOR SURGERY INFORMED THAT IT HAS BEEN POSTPONED. PATIENT IS AWAKE AND ALERT SITTING IN BED. NO OTHER NEEDS AT THIS TIME. EDUCATED TO USE CALL LIGHT FOR ASSISTANCE. CALL LIGHT IS WITH HIM.
--- NOTE | 2022-05-29 12:20 | NUR ---
Dietitian Recommendations * Continue consistent CHO diet * Consider wound supplements: MVI, 250 mg VIT C, Alverto BID * Consider 220mg ZnSO4 x 14 days for wound healing GS, MPH, RD Please refer to RD Assessment for further details. Thanks! Addendum: 05/29/22 at [address] Amended: Links added.
[2022-05-29] MEDS: FLUCONAZOLE 100 mg/ NS 50 ML IV SCH (14:05)
--- NOTE | 2022-05-29 14:12 | NUR ---
MEDICATION PATIENTS SCHEDULED MEDICATION GIVEN PER ORDER. PATIENT IS AWAKE AND ALERT SITTING IN BED, VERY CONFUSED THOUGH HE WAS TALKING ON THE PHONE WHEN HE DID NOT HAVE A PHONE. PATIENT SHOWS NO SIGNS OF ANY DISTRESS. BREAHTING IS EQUAL AND NON LABORED. ALL SAFETY PRECAUTION IN PLACE.
[2022-05-29 15:32] VITALS: BP_SYST 110
--- NOTE | 2022-05-29 18:20 | NUR ---
rn closing note patient is awake and alert sitting up in bed, Accu check done coverage done as needed. patients scheduled medication also given as needed. patients son is at bed side. Patients son states he does not understand why they want to place patient on dialysis he was on it prior. Informed to have md speak with him. Patient is still confused not making sense son said he was not like this. md is aware of the confusion. patient educated to use call light for assistance. call light is with him. Richmond catheter draining to gravity. no other needs at this time.
[2022-05-30] VITALS (7 sets, daily range): BP systolic 94–114
[2022-05-30] MEDS: MORPHINE 2 MG/ML INJ. SYRINGE IVP PRN ×2 (03:40→12:42)
[2022-05-30] MEDS: PIPERACILLIN/TAZO 2.25G/DEX-IS 50 ML IV SCH ×4 (05:06→17:03)
--- NOTE | 2022-05-30 06:45 | NUR ---
Sacral wound cleansed with NS and packed w/ wet to DSD and covered w/th optifoam. Repositioned. Given Morphine for pain with relief; pt. was able to sleep. VSS. Will cont. to monitor.
[2022-05-30 08:08] LABS: BASOPHILS # (AUTO) 0.1 K/uL (0.0-0.2); BASOPHILS % (AUTO) 0.6 % (0.0-2.0); EOSINOPHILS # (AUTO) 0.3 K/uL (0.0-0.4); EOSINOPHILS % (AUTO) 1.5 % (0.0-4.0); HEMATOCRIT 28.1 % (36-54); HEMOGLOBIN 9.1 g/dL (14.0-18.0); LYMPHOCYTES # (AUTO) 2.7 K/uL (1.0-5.5); LYMPHOCYTES % (AUTO) 14.2 % (20.5-51.5); MEAN CORPUSCULAR HEMOGLOBIN 31 pg (27-31); MEAN CORPUSCULAR HGB CONC 33 % (32-36); MEAN CORPUSCULAR VOLUME 94 fL (79.0-98.0); MONOCYTES # (AUTO) 1.4 K/uL (0.0-1.0); MONOCYTES % (AUTO) 7.6 % (1.7-9.3); NEUTROPHILS # (AUTO) 14.2 K/uL (1.8-7.7); NEUTROPHILS % (AUTO) 76.1 % (40.0-70.0); PLATELET COUNT (AUTO) 275 K/uL (130-430); RED BLOOD CELL COUNT(AUTO) 2.99 MIL/uL (4.2-6.2); RED CELL DISTRIBUTION WIDTH 18.7 % (9.0-15.0); WHITE BLOOD COUNT (AUTO) 18.7 K/uL (4.8-10.8)
[2022-05-30 08:25] LABS: ANION GAP 15 (5-15); CALCIUM 8.6 mg/dL (8.4-11.0); CHLORIDE 105 mmol/L (98-107); CREATININE 4.03 mg/dL (0.55-1.30); GLUCOSE 128 mg/dL (70-99); UREA NITROGEN, BLOOD 67 mg/dL (8-21)
[2022-05-30] MEDS: HEPARIN SODIUM,PORCINE 5,000 UNITS/ML VIAL SUBCUT SCH ×2 (09:00→21:00)
[2022-05-30] MEDS: oxyCODONE HCL 5 MG TABLET PO SCH ×2 (09:00→21:18)
--- NOTE | 2022-05-30 14:29 | NUR ---
DR AMRITA ANDERSON MD. PATIENT CAN EAT. NO SURGERY SCHEDULE TONKIKI. INFORMED RN TO CALL DR DOWLING TO SEE IF PERMACATH WILL BE PLACED TONIGHT Addendum: 05/30/22 at 1433 by Jj Hall RN CALLED BACK. ORDREDELFINA TO KEEP PT NPO. RN NOTIFIED
[2022-05-30] MEDS: GABAPENTIN 300 MG CAPSULE PO SCH ×3 (15:00→21:15)
[2022-05-30] MEDS: TAMSULOSIN HCL 0.4 MG CAP PO SCH (16:35)
[2022-05-30] MEDS: FLUCONAZOLE 100 mg/ NS 50 ML IV SCH (16:54)
[2022-05-30] MEDS ORDERED: LR 1,000 ML IV.SOLN IV ONE (18:15)
[2022-05-30] MEDS ORDERED: NS IRRIG SOLN 1000 ML IR ONE (18:15)
[2022-05-30] MEDS ORDERED: PROPOFOL 200MG/ 20ML VIAL (DIPRIVAN) IV ONE (18:15)
[2022-05-30] MEDS ORDERED: fentaNYL CITRATE/PF 100 MCG/2 ML AMP IVP PRN ×2 (19:00)
[2022-05-30] MEDS ORDERED: METOCLOPRAMIDE HCL 10 MG/2 ML VIAL IVP PRN (19:00)
[2022-05-30] MEDS ORDERED: ONDANSETRON HCL 4 MG/2 ML VIAL IVP PRN (19:00)
--- NOTE | 2022-05-30 20:01 | NUR ---
PM ASSESSMENT; JUST RETURNED FROM RECOVERY OF DEBRIDEMENT OF SACRAL WOUND, PT HAS A WOUND VAC IN PLACE -Pt is a/ox4, resting in bed comfortably. Pt denies any chest pain,pain,sob,or any acute distress. VS low bp=97/53, 96.0,18, l7gtf=95% r/a, 83. KANDY PICC patent drsg cdi. Colostomy of left lower abd drains green loose stool, emptied 150ml. Discussed poc,all safety measures, pt verbalized understanding. Richmond cath w/ gravity drains yellow urine output. Fall precaution in place. Bed alarmed, side rails x3, call light w/in reach. Cont to monitor pt. Addendum: 05/31/22 at 0106 by Twenty two RegistryBUFFY RN CORRECTION; PT IS A/OX2, NOT A/OX4;
[2022-05-30] MEDS: INSULIN LISPRO SLIDING SCALE 100 UNITS/ML, 3 ML VIAL (humaLOG) SUBCUT PRN (21:19)
--- NOTE | 2022-05-31 00:05 | NUR ---
ROUNDS; KEEP PT NPO FOR NOW -Pt is resting in bed comfortably. No s/s any pain,sob,or any acute distress noted. VSS. bed alarmed, side rails x3, call light w/in reach. Cont to monitor pt.
[2022-05-31 00:11] VITALS: BP_SYST 95
[2022-05-31] MEDS: PIPERACILLIN/TAZO 2.25G/DEX-IS 50 ML IV SCH ×5 (00:48→23:55)
--- NOTE | 2022-05-31 06:30 | NUR ---
CLOSING NOTES; -Pt is resting in bed comfortably. Pt denies any pain,sob,or any acute distress. KANDY Midline of patent drsg cdi. Wound vac of sacral in place with light brown 40ml total drainage. Richmond cath w/ gravity drains yellow urine output. Pt's condition stable. Call light w/in reach. Will endorse to next nurse to cont care.
[2022-05-31 06:39] LABS: ANION GAP 15 (5-15); CALCIUM 8.1 mg/dL (8.4-11.0); CHLORIDE 107 mmol/L (98-107); CREATININE 4.03 mg/dL (0.55-1.30); GLUCOSE 157 mg/dL (70-99); UREA NITROGEN, BLOOD 58 mg/dL (8-21); VANCOMYCIN,RANDOM 21.5 ug/mL
[2022-05-31 07:05] LABS: BASOPHILS # (AUTO) 0.1 K/uL (0.0-0.2); BASOPHILS % (AUTO) 0.6 % (0.0-2.0); EOSINOPHILS # (AUTO) 0.3 K/uL (0.0-0.4); EOSINOPHILS % (AUTO) 1.8 % (0.0-4.0); HEMATOCRIT 23.4 % (36-54); HEMOGLOBIN 7.8 g/dL (14.0-18.0); LYMPHOCYTES # (AUTO) 3.1 K/uL (1.0-5.5); LYMPHOCYTES % (AUTO) 18.5 % (20.5-51.5); MEAN CORPUSCULAR HEMOGLOBIN 31 pg (27-31); MEAN CORPUSCULAR HGB CONC 33 % (32-36); MEAN CORPUSCULAR VOLUME 93 fL (79.0-98.0); MONOCYTES # (AUTO) 1.1 K/uL (0.0-1.0); MONOCYTES % (AUTO) 6.5 % (1.7-9.3); NEUTROPHILS # (AUTO) 12.2 K/uL (1.8-7.7); NEUTROPHILS % (AUTO) 72.6 % (40.0-70.0); PLATELET COUNT (AUTO) 253 K/uL (130-430); RED BLOOD CELL COUNT(AUTO) 2.51 MIL/uL (4.2-6.2); RED CELL DISTRIBUTION WIDTH 18.9 % (9.0-15.0); WHITE BLOOD COUNT (AUTO) 16.9 K/uL (4.8-10.8)
--- NOTE | 2022-05-31 07:51 | NUR ---
Patient received awake and alert, able to communicate needs. Med surg patient. No edema noted. Received on room air, tolerating well. Patient is incontinent. Richmond in place secured with stat lock. Wound to sacrum with wound vac in place. iv to gila midline, patent and flushing well.
[2022-05-31 08:00] VITALS: BP_SYST 94
[2022-05-31] MEDS: oxyCODONE HCL 5 MG TABLET PO SCH ×3 (09:00→21:37)
[2022-05-31] MEDS: GABAPENTIN 300 MG CAPSULE PO SCH ×3 (09:35→21:36)
[2022-05-31] MEDS: TAMSULOSIN HCL 0.4 MG CAP PO SCH (09:35)
[2022-05-31] MEDS: HEPARIN SODIUM,PORCINE 5,000 UNITS/ML VIAL SUBCUT SCH ×2 (09:36→21:38)
[2022-05-31 11:28] VITALS: BP_SYST 101
--- NOTE | 2022-05-31 12:22 | NUR ---
Paged Dr Monte for sandra placement
[2022-05-31] MEDS: FLUCONAZOLE 100 mg/ NS 50 ML IV SCH (13:16)
--- NOTE | 2022-05-31 13:57 | NUR ---
resumed diet orders as patient refusing sandra cath placement
[2022-05-31] MEDS ORDERED: calcitrioL 0.25 MCG CAPSULE PO ONE (14:15)
[2022-05-31 15:18] VITALS: BP_SYST 110
[2022-05-31] MEDS: INSULIN LISPRO SLIDING SCALE 100 UNITS/ML, 3 ML VIAL (humaLOG) SUBCUT PRN ×2 (17:09→21:44)
--- NOTE | 2022-05-31 18:24 | NUR ---
TOLERATING PO INTAKE VERY WELL
[2022-05-31 19:15] VITALS: BP_SYST 92
--- NOTE | 2022-05-31 19:15 | NUR ---
PM ASSESSMENT; -Pt is a/ox2-3, resting in bed comfortably. Pt denies any chest pain,pain,sob,or any acute distress. KANDY MIDLINE patent drsg cdi. Colostomy of left lower abd drains green loose stool. Wound vac of sacral site in place drains light brownish color. Discussed poc,all safety measures, pt verbalized understanding. Richmond cath w/ gravity drains yellow urine output. Fall precaution in place. Bed alarmed, side rails x3, call light w/in reach. Cont to monitor pt.
--- NOTE | 2022-06-01 00:04 | NUR ---
ROUNDS; -Pt is resting in bed comfortably. No s/s any pain,sob,or any acute distress noted. bed alarmed, side rails x3, call light w/in reach. Cont to monitor pt.
[2022-06-01 00:19] VITALS: BP_SYST 106
[2022-06-01] MEDS: PIPERACILLIN/TAZO 2.25G/DEX-IS 50 ML IV SCH ×3 (05:22→18:45)
--- NOTE | 2022-06-01 06:45 | NUR ---
CLOSING NOTES; -Pt is resting in bed comfortably. Pt denies any pain,sob,or any acute distress. KANDY Midline of patent drsg cdi. Wound vac of sacral in place with light brown 20ml total drainage. Richmond cath w/ gravity drains yellow urine output. Pt's condition stable. Call light w/in reach. Will endorse to next nurse to cont care.
[2022-06-01 07:49] LABS: BASOPHILS # (AUTO) 0.2 K/uL (0.0-0.2); EOSINOPHILS # (AUTO) 0.4 K/uL (0.0-0.4); EOSINOPHILS % (AUTO) 2.7 % (0.0-4.0); HEMATOCRIT 24.3 % (36-54); HEMOGLOBIN 8.1 g/dL (14.0-18.0); LYMPHOCYTES # (AUTO) 2.9 K/uL (1.0-5.5); LYMPHOCYTES % (AUTO) 18.3 % (20.5-51.5); MEAN CORPUSCULAR HEMOGLOBIN 31 pg (27-31); MEAN CORPUSCULAR HGB CONC 33 % (32-36); MEAN CORPUSCULAR VOLUME 94 fL (79.0-98.0); MONOCYTES # (AUTO) 0.9 K/uL (0.0-1.0); MONOCYTES % (AUTO) 5.5 % (1.7-9.3); NEUTROPHILS # (AUTO) 11.3 K/uL (1.8-7.7); NEUTROPHILS % (AUTO) 72.5 % (40.0-70.0); PLATELET COUNT (AUTO) 269 K/uL (130-430); RED BLOOD CELL COUNT(AUTO) 2.59 MIL/uL (4.2-6.2); RED CELL DISTRIBUTION WIDTH 18.7 % (9.0-15.0); WHITE BLOOD COUNT (AUTO) 15.6 K/uL (4.8-10.8)
[2022-06-01 08:21] VITALS: BP_SYST 91
[2022-06-01 08:25] LABS: ANION GAP 14 (5-15); CALCIUM 8.6 mg/dL (8.4-11.0); CHLORIDE 107 mmol/L (98-107); CREATININE 3.87 mg/dL (0.55-1.30); GLUCOSE 113 mg/dL (70-99); UREA NITROGEN, BLOOD 53 mg/dL (8-21)
[2022-06-01] MEDS: GABAPENTIN 300 MG CAPSULE PO SCH ×3 (10:03→20:23)
[2022-06-01] MEDS: TAMSULOSIN HCL 0.4 MG CAP PO SCH (10:03)
[2022-06-01] MEDS: oxyCODONE HCL 5 MG TABLET PO SCH ×2 (10:03→20:23)
[2022-06-01] MEDS: HEPARIN SODIUM,PORCINE 5,000 UNITS/ML VIAL SUBCUT SCH ×2 (10:04→20:25)
[2022-06-01 11:22] VITALS: BP_SYST 100
[2022-06-01] MEDS: INSULIN LISPRO SLIDING SCALE 100 UNITS/ML, 3 ML VIAL (humaLOG) SUBCUT PRN ×3 (12:24→20:26)
[2022-06-01] MEDS: FLUCONAZOLE 100 mg/ NS 50 ML IV SCH (12:44)
[2022-06-01] MEDS: MORPHINE 2 MG/ML INJ. SYRINGE IVP PRN ×2 (13:38→18:40)
[2022-06-01 15:18] VITALS: BP_SYST 105
[2022-06-01] MEDS: ACETAMINOPHEN 325 MG TABLET PO PRN (16:39)
[2022-06-01 19:30] VITALS: BP_SYST 94
--- NOTE | 2022-06-02 00:03 | NUR ---
ROUNDS; -Pt is resting in bed comfortably. No s/s any pain,sob,or any acute distress noted. Son is at bedside. bed alarmed, side rails x3, call light w/in reach. Cont to monitor pt.
[2022-06-02 00:16] VITALS: BP_SYST 108
[2022-06-02] MEDS: PIPERACILLIN/TAZO 2.25G/DEX-IS 50 ML IV SCH ×5 (00:57→22:50)
--- NOTE | 2022-06-02 01:14 | NUR ---
NOTES; -Emptied colostomy bag with yellow liquid stool 350ml, no leakage noted.
[2022-06-02] MEDS: INSULIN LISPRO SLIDING SCALE 100 UNITS/ML, 3 ML VIAL (humaLOG) SUBCUT PRN ×3 (05:56→22:43)
[2022-06-02 08:25] VITALS: BP_SYST 112
[2022-06-02] MEDS: TAMSULOSIN HCL 0.4 MG CAP PO SCH (09:47)
[2022-06-02] MEDS: oxyCODONE HCL 5 MG TABLET PO SCH ×2 (09:48→22:37)
[2022-06-02] MEDS: GABAPENTIN 300 MG CAPSULE PO SCH ×3 (09:48→22:37)
[2022-06-02] MEDS: calcitrioL 0.25 MCG CAPSULE PO SCH (09:48)
[2022-06-02] MEDS: HEPARIN SODIUM,PORCINE 5,000 UNITS/ML VIAL SUBCUT SCH ×2 (09:54→22:36)
[2022-06-02 11:22] VITALS: BP_SYST 114
[2022-06-02] MEDS: MORPHINE 2 MG/ML INJ. SYRINGE IVP PRN (13:48)
[2022-06-02] MEDS: FLUCONAZOLE 100 mg/ NS 50 ML IV SCH (13:49)
--- NOTE | 2022-06-02 14:20 | NUR ---
CALLED DR. Huitron ABOUT SACRAL WOUND CULTURE RESULT, VRE AND ESBL. SAID THAT HE'LL CHANGE IV ATB TOMORROW. PATIENT'S STABLE WITH NO C/O PAIN OR DISCOMFORT, NO S/S OF INFECTION, AFEBRILE.
--- NOTE | 2022-06-02 14:40 | NUR ---
WOUND EVALUATION: Wound Consult received from Dr. Baum. Thank you, Dr. Baum, for the consult. Patient received in a Sara Bed, awake, alert, confused, hearing partially impaired. Patient is unable to turn independently. David Score is a 12. Past Medical History: Colon Cancer, Colostomy, GERD, Chronic Kidney Disease, BPH. On admission patient was found to have Sepsis and infected Stage 4 Sacral Decubitus Ulcers. Recent Labs: WBC 15.6, RBC 2.59, hemoglobin 8.1, hematocrit 24.3, BUN 53, creatinine 3.87, glucose 113, albumin 3.2, PTT 35.3. Microbiology: Blood culture results x2 negative. MRSA screen results negative. Sacral wound culture results positive for E. coli (ESBL, MDRO), and Enterococcus faecium (VRE). Intrinsic factors that delay wound healing: Chronic Kidney Disease, infected sacral wound, Hypoalbuminemia. Extrinsic factors that delay wound healing: Decreased mobility. Sacral-Coccygeal and bilateral heel wounds present on admission, verified by resident transfer sheet. Wound Assessment: 1. Sacral-Coccygeal area: Pressure ulcer, present on admission. Wound is status post debridement by Dr. Monte on 05/30/2022 with Wound VAC placement. Post debridement, wound was staged as a Stage IV pressure ulcer. Wound bed 40% black slough, 50% yellow slough, 10% red tissue. Moderate odor, dark-colored drainage in Wound VAC canister. Stephanie-wound has undermining from 7-3 o'clock (1.5 cm at 7 o'clock; 1.5 cm at 12 o'clock; 1.2 cm at 3 o'clock; 2.6 cm at 9 o'clock. Measures 11.5 cm x 12.5 cm x 2.5 cm. Recommend: Cleanse wound with normal saline. Apply Sureprep to stephanie-wound and surrounding tissue. Apply hydrogel to wound bed. Cut black granufoam dressing to size and place inside wound bed and cover with VAC drape. Leg VAC drape over skin to nonbony portion of thigh. Cut a hole into the VAC dressing and bridge dressing to hip with granufoam dressing. Leg VAC drape over entire granular foam dressing. Attach suction attachment to granufoam and wound VAC. Run wound VAC at 125 mmHg continuous, high. Perform wound care q M/W/F, and as needed for dressing dislodgement. 2. Left Posterior Lateral Heel: sDTI, present on admission. Site has dark discolored area, soft, boggy. No odor, no drainage. Periwound intact. Blanchable red tissue surrounding sDTI. Site measures 4.8 cm x 5.0 cm. 3. Right Posterior Heel: sDTI, present on admission. Site has dark discolored area, soft, boggy. No odor, no drainage. Periwound intact. Blanchable red tissue surrounding sDTI. Site measures 4.3 cm x 4.2 cm. Recommend: [place] sDTI sites with Betadine. Allow Betadine to air dry. Cover sites with foam dressings. Elevate, offload and float bilateral heels with 1 pillow lengthwise under each extremity at all times. Do not allow heels to touch bed or other surfaces at any time. Also recommend: Reposition patient side to side only every 2 hours with pillow support and off-load pressure areas with pillows for pressure re-distribution. Offload, elevate and float bilateral heels with 1 pillow lengthwise under each extremity at all times. Perform skin care and monitor skin integrity Q shift. Use moisture barrier cream on buttocks and other moisture susceptible areas QID and as needed for soiling. Place patient on an IsoFlex MINH low air-loss mattress and initiate low air loss therapy.
[2022-06-02 15:26] VITALS: BP_SYST 120
--- NOTE | 2022-06-02 18:16 | NUR ---
BLOOD SUGAR 159, PATIENT REFUSED TO RECEIVE 2 UNITS OF HUMALOG INSULIN. EXPLAINED THE RISK OF NOT GETTING INSULIN BUT STILL REFUSED. BS WILL BE RECHECKED @ 2100.
--- NOTE | 2022-06-03 07:40 | NUR ---
OPENING NOTES RECEIVED BEDSIDE SBAR FROM MICHELE BOX OFFICE CLERKCOLLEGE PHYSICS INSTRUCTOR NURSE, PATIENT RESTING WELL IN BED WITH EYES CLOSED, NO S/S OF DISTRESS OF ANY PAIN AT THIS TIME. ALL SAFETY CHECK DONE BED IN LOCKED AND LOW POSITION. WILL CONT TO MONITOR PER ORDERS.
[2022-06-03 08:00] VITALS: BP_SYST 118
[2022-06-03] MEDS: GABAPENTIN 300 MG CAPSULE PO SCH ×3 (08:31→21:25)
[2022-06-03] MEDS: HEPARIN SODIUM,PORCINE 5,000 UNITS/ML VIAL SUBCUT SCH ×2 (08:32→21:26)
[2022-06-03] MEDS: oxyCODONE HCL 5 MG TABLET PO SCH ×2 (08:32→21:25)
[2022-06-03] MEDS: TAMSULOSIN HCL 0.4 MG CAP PO SCH (08:32)
--- NOTE | 2022-06-03 09:21 | NUR ---
no distress noted, patient slept all night, turn q2hrs and prn, wound vac intact coccyx, uneventful shift, left abdominal colostomy with min loose brown stool noted
[2022-06-03 11:40] VITALS: BP_SYST 106
[2022-06-03 12:25] LABS: ANION GAP 12 (5-15); CALCIUM 8.5 mg/dL (8.4-11.0); CHLORIDE 105 mmol/L (98-107); GLUCOSE 236 mg/dL (70-99); UREA NITROGEN, BLOOD 49 mg/dL (8-21); VANCOMYCIN,RANDOM 14.6 ug/mL
[2022-06-03] MEDS: INSULIN LISPRO SLIDING SCALE 100 UNITS/ML, 3 ML VIAL (humaLOG) SUBCUT PRN (12:25)
--- NOTE | 2022-06-03 12:30 | NUR ---
ROUNDS; PATIENT REMAINS STABLE NO S/S OF ANY DISTRESS, RESTING WELL IN BED, BED AT LOCKED AND LOW POSITION, BREATHING NON LABORED, IV INTACT. WILL CONT TO MONITOR PATIENT PER ORDERS.
[2022-06-03] MEDS: FLUCONAZOLE 100 mg/ NS 50 ML IV SCH (12:36)
[2022-06-03 12:40] LABS: BASOPHILS # (AUTO) 0.2 K/uL (0.0-0.2); EOSINOPHILS # (AUTO) 0.3 K/uL (0.0-0.4); EOSINOPHILS % (AUTO) 1.6 % (0.0-4.0); HEMOGLOBIN 8.5 g/dL (14.0-18.0); MEAN CORPUSCULAR HEMOGLOBIN 31 pg (27-31); MEAN CORPUSCULAR HGB CONC 33 % (32-36); MEAN CORPUSCULAR VOLUME 94 fL (79.0-98.0); MONOCYTES % (AUTO) 5.6 % (1.7-9.3); NEUTROPHILS # (AUTO) 13.1 K/uL (1.8-7.7); NEUTROPHILS % (AUTO) 74.8 % (40.0-70.0); PLATELET COUNT (AUTO) 295 K/uL (130-430); RED BLOOD CELL COUNT(AUTO) 2.76 MIL/uL (4.2-6.2); WHITE BLOOD COUNT (AUTO) 17.6 K/uL (4.8-10.8)
[2022-06-03 15:11] VITALS: BP_SYST 120
--- NOTE | 2022-06-03 18:43 | NUR ---
CLOSING NOTES: PATIENT REMAINS STABLE NO S/S OF ANY DISTRESS WILL GIVE PM SHIFT NURSE BEDSIDE SBAR ALL SAFETY NEEDS MET TODAY.
--- NOTE | 2022-06-03 19:15 | NUR ---
RECEIVED REPORT, PATIENT SLEEPING, NO DISTRESS NOTED, EASILY AROUSED, HEELS PAINTED WITH BETADINE AND APPLIED DRESSING, FATMATA HEELS ELEVATED PER ORDERS, PATIENT REFUSE TURNING AT THIS TIME
[2022-06-03 20:32] VITALS: BP_SYST 112
[2022-06-03] MEDS: ERAVACYCLINE DI HYDROCHLORIDE IV SCH (21:30)
[2022-06-03] MEDS: NS IV SCH (21:30)
[2022-06-03 23:30] VITALS: BP_SYST 107
[2022-06-04 00:41] VITALS: BP_SYST 94
--- NOTE | 2022-06-04 06:00 | NUR ---
THIS SHIFT UNEVENTFUL, PATIENT SLEPT ALL NIGHT, REPOSITION Q2HRS AND PRN PATIENT COMFORT, TAVERA CARE GIVEN, TOLERATING IV ABX, , NO RESP DISTRESS NOTED
--- NOTE | 2022-06-04 07:23 | NUR ---
OPENING NOTES: RECEIVED BEDSIDE SBAR REPORT FROM PM SHIFT NURSE MICHELE RN, PATIENT RESTING IN BED WITH EYES CLOSED, NO S/S OF ANY DISTRESS BED AT LOCKED AND LOW POSITION CALL LIGHT IN REACH WILL MONITOR PATIENT PER ORDERS.
[2022-06-04 07:35] LABS: HEMATOCRIT 24.6 % (36-54); HEMOGLOBIN 8.1 g/dL (14.0-18.0); MEAN CORPUSCULAR HEMOGLOBIN 31 pg (27-31); MEAN CORPUSCULAR HGB CONC 33 % (32-36); MEAN CORPUSCULAR VOLUME 93 fL (79.0-98.0); PLATELET COUNT (AUTO) 344 K/uL (130-430); RED BLOOD CELL COUNT(AUTO) 2.64 MIL/uL (4.2-6.2); RED CELL DISTRIBUTION WIDTH 18.9 % (9.0-15.0)
[2022-06-04 07:41] LABS: ALANINE AMINOTRANSFERASE 44 U/L (12-78); ALBUMIN 2.1 g/dL (3.4-4.8); ANION GAP 15 (5-15); ASPARTATE AMINOTRANSFERASE 21 U/L (10-37); CALCIUM 8.5 mg/dL (8.4-11.0); CHLORIDE 107 mmol/L (98-107); CREATININE 3.17 mg/dL (0.55-1.30); GLUCOSE 124 mg/dL (70-99); TOTAL BILIRUBIN 0.3 mg/dL (0.0-1.0); UREA NITROGEN, BLOOD 49 mg/dL (8-21)
[2022-06-04] MEDS: GABAPENTIN 300 MG CAPSULE PO SCH ×3 (08:25→21:59)
[2022-06-04] MEDS: oxyCODONE HCL 5 MG TABLET PO SCH ×2 (08:26→21:58)
[2022-06-04] MEDS: TAMSULOSIN HCL 0.4 MG CAP PO SCH (08:26)
[2022-06-04] MEDS: HEPARIN SODIUM,PORCINE 5,000 UNITS/ML VIAL SUBCUT SCH ×2 (08:30→22:10)
[2022-06-04] MEDS ORDERED: VANCOMYCIN HCL 500 MG in NS 100 ML IV ONE ×2 (09:00→14:00)
[2022-06-04 11:42] VITALS: BP_SYST 96
[2022-06-04] MEDS: INSULIN LISPRO SLIDING SCALE 100 UNITS/ML, 3 ML VIAL (humaLOG) SUBCUT PRN ×2 (11:42→17:44)
[2022-06-04 11:52] LABS: ATYPICAL LYMPHOCYTES % 0 % (0-0); BAND % (MANUAL) 8 % (0-6); BASOPHILS % (MANUAL) 0 % (0-2); EOSINOPHILS % (MANUAL) 2 % (0-7); LYMPHOCYTES % (MANUAL) 25 % (20-46); MONOCYTES % (MANUAL) 4 % (0-11)
--- NOTE | 2022-06-04 11:55 | NUR ---
CALLED PHARM NEEDED XERAVA [id number] IV NOT IN FREG WILL BRING TO US
[2022-06-04] MEDS: ERAVACYCLINE DI HYDROCHLORIDE IV SCH ×2 (11:59→21:57)
[2022-06-04] MEDS: NS IV SCH ×2 (11:59→21:57)
--- NOTE | 2022-06-04 12:13 | NUR ---
Nutrition F/U: Admitting Diagnosis Infected decubitis Reviewed Pertinent Medical/Surgical Hx Medical Record Other Medical History Comment: per EMR: The patient is a confused 81-year-old male. He presents via ambulance from a group home facility. He has a history of colon cancer, colostomy, GERD, chronic kidney disease and BPH. He was found to have sepsis and infected stage 4 sacral decubitus ulcers. Pt made NPO (05/28) for upcoming surgery of sacral area 06/02 Acct Exec Note reveals: sacral wound positive for E.coli and enterococcus faecium, s/p debridement on 05/30 w/ wound vac placement. On both right and left heels, suspected DTI Subjective Information Late assessment: d/t heavy caseload. RD s/w RN regarding pt condition. She said pt is eating well (documented PO intake 78% x 9 meals). RN reports that pt doesnt seem to be having any GI symptoms currently. When asked about his wounds, RN said they were clean and dry. RD suggested that we give him Alverto to help with healing and RN sounded agreeable. Per EMR review: pt abd is soft, non-distended with active bowel sounds. Current Diet Order/Nutrition Support CCHO x 4 day Patient/Significant Other Able To Verbalize Education Provided Not Indicated Pertinent Medications SSI, heparin Pertinent Labs WBC 20 H (worsening), H/H 8.1 L/24.6 L, BUN 49 H, Cre 3.17 H, BG 124 H Height (Feet) 6 feet Weight * stable since 05/28 156 pounds/70.76 kg Body Mass Index 21.15 kg/m2 %IBW 91 [place]/Adjusted Body Weight 178#/ 78 kg Recent Weight Change No - Per RN screen Weight Status Appropriate Gastrointestinal Symptoms None Food Allergies unable to assess Skin Integrity Comment: David: 15 Wound: Lower sacrum wound Edema: none 06/04 Current % PO Good avg 78% x 9 meals Estimated Energy Expenditure (kcals/day) 4125-8604 kcal (30-35 kcal/kg CBW d/t CKD, wound, Sepsis, wound vac) Estimated Protein Required (g/day) 71- 99 g (1-1.4 g/kg CBW d/t CKD, wounds, wound vac) Estimated Fluid Required (l/day) Refer to MD (CKD) Problem/Etiology/Signs/Symptoms * Increased energy and protein utilization r/t metabolic demands a/e/b estimated nutritional needs for wound healing and sepsis (ongoing) Expected Outcomes/Goals PO intake provides >85% estimated nutrient needs, nutrition-related labs trending WNL, improvements in skin integrity, BM q1-3 days Dietitian Recommendations * Continue consistent CHO diet. Consider adding Renal diet if pt's renal labs worsen * Consider wound supplements: MVI, 250 mg VIT C, Alverto BID * Consider 220mg ZnSO4 x 14 days for wound healing Follow Up Mod Risk: F/U in 3-5 days GS, MPH, RD
--- NOTE | 2022-06-04 12:22 | NUR ---
Dietitian Recommendations * Continue consistent CHO diet. Consider adding Renal diet if pt's renal labs worsen * Consider wound supplements: MVI, 250 mg VIT C, Alverto BID * Consider 220mg ZnSO4 x 14 days for wound healing GS, MPH, RD Please refer to Nutrition F/U for further details. Thanks!
[2022-06-04] MEDS: FLUCONAZOLE 100 mg/ NS 50 ML IV SCH (13:14)
[2022-06-04 16:45] VITALS: BP_SYST 99
--- NOTE | 2022-06-04 18:42 | NUR ---
CLOSING NOTES: PATIENT REMAIN STABLE NO S/S OF DISTRESS, ALL SAFETY CHECKS MET TODAY, NON LABOR BREATHING RESTING WELL BED IN LOW AND LOCKED POSITION, CALL LIGHT IN REACH, WILL GIVE PM SHIFT NURSE BEDSIDE SBAR.
[2022-06-04 20:00] VITALS: BP_SYST 130
--- NOTE | 2022-06-04 20:25 | NUR ---
RECEIVED PT LYING IN BED, NO DISTRESS NOTED, DENIES PAIN. AAOX3, O2 SAT 97% RA, LUNG SOUNDS DIMINISHED. RUE MIDLINE SITE CDI. WOUND VAC SET A [id number] BROWN DRAINAGE NOTED. COLOSTOMY FULL OF GAS AND STOOL 400ML SOFT BROWN STOOL. F/C DRAIN YELLOW URINE. SECURITY DEVICE ON.
[2022-06-05 00:50] VITALS: BP_SYST 120
[2022-06-05 08:00] VITALS: BP_SYST 106
--- NOTE | 2022-06-05 08:00 | NUR ---
Initial Notes patient is Aox4. No ss of distress noted. Breathing is even and nonlabored, on room air. patient denies severe pain. No SOB noted. Vital signs obtained, as documented. Patient is eating breakfast. Bed is locked, alarm on, and at lowest position. call light within reach.
[2022-06-05 09:50] LABS: BASOPHILS # (AUTO) 0.3 K/uL (0.0-0.2); BASOPHILS % (AUTO) 1.3 % (0.0-2.0); EOSINOPHILS # (AUTO) 0.2 K/uL (0.0-0.4); EOSINOPHILS % (AUTO) 0.8 % (0.0-4.0); HEMATOCRIT 27.2 % (36-54); HEMOGLOBIN 8.8 g/dL (14.0-18.0); LYMPHOCYTES # (AUTO) 2.7 K/uL (1.0-5.5); LYMPHOCYTES % (AUTO) 12.4 % (20.5-51.5); MEAN CORPUSCULAR HEMOGLOBIN 31 pg (27-31); MEAN CORPUSCULAR HGB CONC 32 % (32-36); MEAN CORPUSCULAR VOLUME 95 fL (79.0-98.0); MONOCYTES # (AUTO) 1.8 K/uL (0.0-1.0); MONOCYTES % (AUTO) 8.4 % (1.7-9.3); NEUTROPHILS # (AUTO) 16.6 K/uL (1.8-7.7); PLATELET COUNT (AUTO) 325 K/uL (130-430); RED BLOOD CELL COUNT(AUTO) 2.87 MIL/uL (4.2-6.2); RED CELL DISTRIBUTION WIDTH 19.1 % (9.0-15.0); WHITE BLOOD COUNT (AUTO) 21.5 K/uL (4.8-10.8)
[2022-06-05 09:59] LABS: NEUTROPHILS % (AUTO) 77.1 % (40.0-70.0)
[2022-06-05 10:12] LABS: ANION GAP 11 (5-15); CALCIUM 8.5 mg/dL (8.4-11.0); CHLORIDE 105 mmol/L (98-107); CREATININE 3.23 mg/dL (0.55-1.30); GLUCOSE 168 mg/dL (70-99); UREA NITROGEN, BLOOD 56 mg/dL (8-21)
[2022-06-05] MEDS: GABAPENTIN 300 MG CAPSULE PO SCH ×3 (10:25→21:32)
[2022-06-05] MEDS: calcitrioL 0.25 MCG CAPSULE PO SCH (10:26)
[2022-06-05] MEDS: TAMSULOSIN HCL 0.4 MG CAP PO SCH (10:26)
[2022-06-05] MEDS: oxyCODONE HCL 5 MG TABLET PO SCH ×2 (10:26→21:34)
[2022-06-05] MEDS: HEPARIN SODIUM,PORCINE 5,000 UNITS/ML VIAL SUBCUT SCH ×2 (10:27→21:33)
[2022-06-05] MEDS: INSULIN LISPRO SLIDING SCALE 100 UNITS/ML, 3 ML VIAL (humaLOG) SUBCUT PRN ×3 (11:30→23:15)
--- NOTE | 2022-06-05 11:40 | NUR ---
Notes Patient has been cleaned and linens changed. wound vac changed. Patient is in a comfortable position. Blood glucose was 229 mg/ dl. 4 units of insulin Lispro administered. Safety precautions in place and call light within reach. Addendum: 06/06/22 at 1820 by Erin Butts LVN Notes Patient has been cleaned and linens changed. wound vac changed. Wound is stage IV. No pus noted. L buttocks appeared to be red, skin fragile, skin looks as if breaking down. cleaned with ns, applied wound wound vac sponge. wound vac turned on, no leakage. Patient is in a comfortable position on his side, off buttocks, with pillow. . Blood glucose was 229 mg/ dl. 4 units of insulin Lispro administered. Safety precautions in place and call light within reach.
[2022-06-05] MEDS: NS IV SCH ×2 (11:46→22:56)
[2022-06-05] MEDS: ERAVACYCLINE DI HYDROCHLORIDE IV SCH ×2 (11:46→22:56)
[2022-06-05 12:00] VITALS: BP_SYST 121
--- NOTE | 2022-06-05 12:05 | NUR ---
[facility] to a [facility] eval ACSW Nae met with patient and patient's girlfriend Gerda Todd at bedside. ACSW completed introductions, reason for referral and patient was open to contact. Patient also provided permission to speak with Gerda in the room ACSW provided brief explanation of Hospice eval and hospice services. Patient and girlfriend are requesting packet to be faxed to [facility]. [facility] faxed packet for review to [facility] P: F: Addendum: 06/05/22 at 1210 by Nae Haney MSW WRONG PATIENT NOTE ENTERED ON WRONG PATIENT
--- NOTE | 2022-06-05 12:10 | NUR ---
DISCHARGE PLANNING ACSW Nae faxed packet for review to [facility] P:
[2022-06-05] MEDS ORDERED: Vancomycin Per Pharmacy XX (12:24)
[2022-06-05] MEDS ORDERED: FLUC100P4 IV (12:24)
[2022-06-05] MEDS ORDERED: ERAV50VI IV (12:24)
[2022-06-05] MEDS: FLUCONAZOLE 200 mg/ NS 100 ML IV SCH (13:00)
--- NOTE | 2022-06-05 13:00 | NUR ---
Notes Patient stated midline was hurting and leaking. IV antibiotics stopped. RN notified. Dr. Baum made aware. New orders received. Addendum: 06/06/22 at 1821 by Erin Butts LVN Notes Patient stated midline was hurting and leaking. IV antibiotics stopped. RN notified. Dr. Baum made aware. New orders received. Patient was on back, put patient back on side with pillow. patient starts to move himself towards back again. educated on being on side. patient continues to move to lay on back
[2022-06-05] MEDS ORDERED: SODIUM BICARBONATE 650 MG TABLET PO ONE (15:45)
[2022-06-05 16:00] VITALS: BP_SYST 118
--- NOTE | 2022-06-05 16:00 | NUR ---
Notes Patient is resting, eyes closed. No ss of distress noted. No facial grimace. Safety precautions in place and call light within reach.
--- NOTE | 2022-06-05 19:43 | NUR ---
Closing Notes Patient is resting, awake. No ss of distress noted. Breathing is even and nonlabored, RA. No SOB noted. No facial grimace noted. Midline leaking still, replacement not done yet. All needs met. Patient is stable. f/c draining by gravity. Wound vac draining. Bed is locked, alarm on, and at lowest position. Call light within reach. Report given to BUFFY Contreras.
[2022-06-05 20:00] VITALS: BP_SYST 103
--- NOTE | 2022-06-05 20:36 | NUR ---
MIDLINE LEAKING ORDER FOR NEW MIDLINE PLACED PER DAY SHIFT NURSE. MINIMAL OUTPUT IN COLOSTOMY, F/C DRAINING YELLOW URINE. MORE LETHARGIC TODAY WOUND VAC WITH BROWN DRAINAGE. Addendum: 06/05/22 at 2151 by [employer], BUFFY BAER 2049: CALLED DR CROCKER TO MAKE SURE IT IS OKAY TO START A MIDLINE ON THE LT ARM
[2022-06-05] MEDS: SODIUM BICARBONATE 650 MG TABLET PO SCH (21:32)
[2022-06-06] VITALS (7 sets, daily range): BP systolic 77–118
[2022-06-06] MEDS: ACETAMINOPHEN 325 MG TABLET PO PRN (06:06)
[2022-06-06] MEDS: INSULIN LISPRO SLIDING SCALE 100 UNITS/ML, 3 ML VIAL (humaLOG) SUBCUT PRN ×3 (06:06→22:13)
--- NOTE | 2022-06-06 08:00 | NUR ---
OPENING NOTES: Pt in bed with eyes closed. pt is A/O x 4. No s/s of distress or pain reported. Breathing is even and unlabored. All needs met at this time, safety checks made and call light within reach.
--- NOTE | 2022-06-06 08:00 | NUR ---
Notes patient has been cleaned and reposition on side with pillow. HOB elevated and breakfast tray on bedside table. No ss of distress noted. Breathing is even and nonlabored, on room air. Iv patent. F.C draining by gravity. wound vac draining. Safety precautions in place and call light within reach.
[2022-06-06 09:03] LABS: BASOPHILS # (AUTO) 0.2 K/uL (0.0-0.2); EOSINOPHILS # (AUTO) 0.1 K/uL (0.0-0.4); EOSINOPHILS % (AUTO) 0.6 % (0.0-4.0); HEMATOCRIT 25.2 % (36-54); HEMOGLOBIN 8.3 g/dL (14.0-18.0); LYMPHOCYTES # (AUTO) 2.7 K/uL (1.0-5.5); LYMPHOCYTES % (AUTO) 14.1 % (20.5-51.5); MEAN CORPUSCULAR HEMOGLOBIN 31 pg (27-31); MEAN CORPUSCULAR HGB CONC 33 % (32-36); MEAN CORPUSCULAR VOLUME 95 fL (79.0-98.0); MONOCYTES # (AUTO) 1.5 K/uL (0.0-1.0); MONOCYTES % (AUTO) 7.9 % (1.7-9.3); NEUTROPHILS # (AUTO) 14.8 K/uL (1.8-7.7); PLATELET COUNT (AUTO) 283 K/uL (130-430); RED BLOOD CELL COUNT(AUTO) 2.65 MIL/uL (4.2-6.2); RED CELL DISTRIBUTION WIDTH 18.8 % (9.0-15.0); WHITE BLOOD COUNT (AUTO) 19.3 K/uL (4.8-10.8)
[2022-06-06 09:06] LABS: ANION GAP 11 (5-15); CALCIUM 8.4 mg/dL (8.4-11.0); CHLORIDE 102 mmol/L (98-107); CREATININE 3.35 mg/dL (0.55-1.30); GLUCOSE 184 mg/dL (70-99); UREA NITROGEN, BLOOD 62 mg/dL (8-21); VANCOMYCIN,RANDOM 12.2 ug/mL
[2022-06-06 09:09] LABS: NEUTROPHILS % (AUTO) 76.4 % (40.0-70.0)
[2022-06-06] MEDS: GABAPENTIN 300 MG CAPSULE PO SCH ×3 (10:12→21:49)
[2022-06-06] MEDS: SODIUM BICARBONATE 650 MG TABLET PO SCH ×3 (10:12→21:49)
[2022-06-06] MEDS: TAMSULOSIN HCL 0.4 MG CAP PO SCH (10:12)
[2022-06-06] MEDS: NS IV SCH ×2 (10:13→21:49)
[2022-06-06] MEDS: ERAVACYCLINE DI HYDROCHLORIDE IV SCH ×2 (10:13→21:49)
[2022-06-06] MEDS: HEPARIN SODIUM,PORCINE 5,000 UNITS/ML VIAL SUBCUT SCH ×2 (10:13→21:57)
--- NOTE | 2022-06-06 12:00 | NUR ---
Notes Patient has been positioned and educated to be on his side with pillow. Patient will adjust himself to be on back every time. Patient is noncompliant with being on his side.
[2022-06-06] MEDS ORDERED: VANCOMYCIN HCL 1,000 MG in D5W 250 ML IV ONE (12:15)
--- NOTE | 2022-06-06 13:00 | NUR ---
Notes made aware of low BP. New orders received. wants wound consult to re evaluate on wound. Patient denies pain. No ss of hypotension noted. Safety precautions in place and call light within reach. Addendum: 06/06/22 at 1946 by Erin Butts LVN Notes- MD Tabor made aware of low BP. New orders received. wants wound consult to re evaluate on wound. Patient denies pain. No ss of hypotension noted. Clarified with MD regarding midline placement to CRYS. stated to try and avoid placing midline to CRYS. Safety precautions in place and call light within reach.
[2022-06-06] MEDS: FLUCONAZOLE 200 mg/ NS 100 ML IV SCH (13:16)
[2022-06-06] MEDS ORDERED: VANCOMYCIN HCL 1,000 MG in NS 250 ML IV ONE (14:00)
[2022-06-06] MEDS: ALBUMIN HUMAN 25% 100 ML IV SCH ×2 (14:12→21:51)
--- NOTE | 2022-06-06 15:22 | NUR ---
Paged Dr. Baum to inform of DVT of KANDY. Waiting for call back.
--- NOTE | 2022-06-06 15:25 | NUR ---
Notes Patient is eating lunch. No ss of distress noted. Breathing is even and nonlabored, on room air. No facial grimace noted. Patient denies pain. Bed is locked, alalrm on, and at lowest position. Call light within reach.
[2022-06-06] MEDS ORDERED: MIDODRINE HCL 5 MG TABLET (PROAMATINE) PO ONE (15:45)
--- NOTE | 2022-06-06 15:45 | NUR ---
Notes: Spoke to Dr. Howard confirming DVT on right upper arm.
--- NOTE | 2022-06-06 16:00 | NUR ---
Notes Dr. Baum made aware of DVT to KANDY. Patient is on heparin already. No new orders.
--- NOTE | 2022-06-06 17:30 | NUR ---
Notes Blood glucose was 138, no coverage need. Patient has been repositioned, on side with pillow. F/C draining by gravity. Safety precautions in place and call light within reach.
--- NOTE | 2022-06-06 18:50 | NUR ---
CLOSING NOTES: Pt in bed resting with eyes closed. No s/s of distress or pain reported. Breathing is even and unlabored. Wound vac is on. All needs met at this time, safety checks made and call light within reach.
--- NOTE | 2022-06-06 20:45 | NUR ---
Opening notes Pt asleep, easily awakens, VSS, no s/s distress noted. IV L. FA clear and patent. Richmond catheter draining to gravity with clear, yellow urine. Wound vac in place, no leaks noted. L abd colostomy noted. Call light within reach. Safety maintained. To monitor.
[2022-06-06] MEDS: MIDODRINE HCL 5 MG TABLET (PROAMATINE) PO SCH (21:49)
--- NOTE | 2022-06-06 23:45 | NUR ---
NOTES; CONTINUITY CARE FROM BONNY-BUFFY -Pt is a/ox2, resting in bed comfortably. No s/s any chest pain,pain,sob,or any acute distress noted. Colostomy of left lower abd drains green loose stool. Wound vac of sacral site in place drains light brownish color. IV site patent no s/s any infiltration noted. Richmond cath w/ gravity drains yellow urine output. Maintains contact isolation. Fall precaution in place. Bed alarmed, side rails x3, call light w/in reach. Cont to monitor pt.
--- NOTE | 2022-06-06 23:45 | NUR ---
Continuity of care Endorse care to BUFFY Romano for continuity of care. Pt asleep, stable condition.
[2022-06-07] VITALS (7 sets, daily range): BP systolic 101–119
--- NOTE | 2022-06-07 00:05 | NUR ---
ROUNDS; -Pt is asleep. No s/s any acute distress. Fall precaution in place. Bed alarmed,side rails x3, Call light w/in reach. cont to monitor pt.
--- NOTE | 2022-06-07 04:12 | NUR ---
ROUNDS; -Pt is asleep. No s/s any acute distress. Fall precaution in place. Bed alarmed,side rails x3, Call light w/in reach. cont to monitor pt.
[2022-06-07] MEDS: ALBUMIN HUMAN 25% 100 ML IV SCH (05:39)
--- NOTE | 2022-06-07 06:58 | NUR ---
CLOSING NOTES; -Pt is resting in bed comfortably. Pt denies any pain,sob,or any acute distress. Wound vac of sacral in place with brown drainage. Richmond cath w/ gravity drains yellow urine output. Pt's condition stable. Maintains contact entire shift. Call light w/in reach. Will endorse to next nurse to cont care.
[2022-06-07] MEDS: TAMSULOSIN HCL 0.4 MG CAP PO SCH (09:59)
[2022-06-07] MEDS: ERAVACYCLINE DI HYDROCHLORIDE IV SCH ×2 (09:59→21:48)
[2022-06-07] MEDS: GABAPENTIN 300 MG CAPSULE PO SCH ×3 (09:59→21:44)
[2022-06-07] MEDS: MIDODRINE HCL 5 MG TABLET (PROAMATINE) PO SCH ×3 (09:59→21:44)
[2022-06-07] MEDS: SODIUM BICARBONATE 650 MG TABLET PO SCH ×3 (09:59→21:44)
[2022-06-07] MEDS: NS IV SCH ×2 (09:59→21:48)
[2022-06-07] MEDS: HEPARIN SODIUM,PORCINE 5,000 UNITS/ML VIAL SUBCUT SCH ×2 (10:00→21:51)
[2022-06-07 11:23] LABS: ANION GAP 12 (5-15); BASOPHILS # (AUTO) 0.1 K/uL (0.0-0.2); BASOPHILS % (AUTO) 0.8 % (0.0-2.0); CALCIUM 8.1 mg/dL (8.4-11.0); CHLORIDE 104 mmol/L (98-107); CREATININE 3.41 mg/dL (0.55-1.30); EOSINOPHILS # (AUTO) 0.1 K/uL (0.0-0.4); EOSINOPHILS % (AUTO) 0.7 % (0.0-4.0); GLUCOSE 158 mg/dL (70-99); HEMOGLOBIN 7.3 g/dL (14.0-18.0); LYMPHOCYTES # (AUTO) 2.3 K/uL (1.0-5.5); LYMPHOCYTES % (AUTO) 13.3 % (20.5-51.5); MEAN CORPUSCULAR HEMOGLOBIN 31 pg (27-31); MEAN CORPUSCULAR HGB CONC 33 % (32-36); MEAN CORPUSCULAR VOLUME 94 fL (79.0-98.0); MONOCYTES # (AUTO) 1.2 K/uL (0.0-1.0); MONOCYTES % (AUTO) 6.9 % (1.7-9.3); NEUTROPHILS # (AUTO) 13.6 K/uL (1.8-7.7); NEUTROPHILS % (AUTO) 78.3 % (40.0-70.0); PLATELET COUNT (AUTO) 271 K/uL (130-430); RED BLOOD CELL COUNT(AUTO) 2.33 MIL/uL (4.2-6.2); RED CELL DISTRIBUTION WIDTH 18.6 % (9.0-15.0); UREA NITROGEN, BLOOD 70 mg/dL (8-21); WHITE BLOOD COUNT (AUTO) 17.3 K/uL (4.8-10.8)
[2022-06-07] MEDS: INSULIN LISPRO SLIDING SCALE 100 UNITS/ML, 3 ML VIAL (humaLOG) SUBCUT PRN ×2 (11:59→21:50)
[2022-06-07] MEDS: FLUCONAZOLE 200 mg/ NS 100 ML IV SCH (12:52)
--- NOTE | 2022-06-07 13:50 | NUR ---
Knife Sharpener CUSTOMS INSPECTOR called [facility], [facility]. Pt. Son, Lv has been in communication with Dinora at [facility]. CUSTOMS INSPECTOR called pt Son who stated yes he wants his dad/pt to go back to [facility] when the payment is taken care of. Lv has been working on this and just got off the phone with Melanie from . CUSTOMS INSPECTOR called and spoke to Tiffani who stated she is wk with son Lv re the bill and then can work on getting pt. back to [facility].
--- NOTE | 2022-06-07 16:00 | NUR ---
WOUND EVALUATION: Late note for 06/07/2022 at 1600 secondary to patient care. Wound Consult received from Dr. Baum for wound reassessment. Thank you, Dr. Baum, for the consult. Patient received in a Kirkwood Bed with an IsoFlex MINH mattress, awake, alert, confused, hearing partially impaired, quick to anger, uses colorful language. Patient is unable to turn independently. David Score is a 14. Past Medical History: Colon Cancer, Colostomy, GERD, Chronic Kidney Disease, BPH. On admission patient was found to have Sepsis and infected Stage 4 Sacral Decubitus Ulcers. Recent Labs: WBC 17.3, RBC 2.33, hemoglobin 7.3, hematocrit 22.0, sodium 134, BUN 70, creatinine 3.41, glucose 158, calcium 8.1. Microbiology: Blood culture results x2 negative. Sacral wound culture results positive for E. coli (ESBL, MDRO), and Enterococcus faecium (VRE), Blood culture results x2 in progress. Intrinsic factors that delay wound healing: Chronic Kidney Disease, infected sacral wound, Hypoalbuminemia. Extrinsic factors that delay wound healing: Decreased mobility. Sacral-Coccygeal and bilateral heel wounds present on admission, verified by resident transfer sheet. Wound Assessment: 1. Sacral-Coccygeal area: Pressure ulcer, present on admission. Wound is status post debridement by Dr. Monte on 05/30/2022 with Wound VAC placement. Post debridement, wound was staged as a Stage IV pressure ulcer. Wound bed 30% black slough, 40% yellow slough, 30% red tissue. Moderate odor, dark-colored drainage in Wound VAC canister. Haley-wound has 100% undermining (2.1 cm at 12 o'clock; 2.5 cm at 3 o'clock; 0.7 cm at 6 o'clock; 4.5 cm at 9 o'clock;). Left lateral and inferior aspect of surrounding tissue has dark discolored skin, which was not removed during initial debridement. Measures 12.4 cm x 12.5 cm x 3.0 cm. Recommend: Cleanse wound with normal saline. Apply Sureprep to haley-wound and surrounding tissue. Apply hydrogel to wound bed. Cut black granufoam dressing to size and place inside wound bed and cover with VAC drape. Leg VAC drape over skin to nonbony portion of thigh. Cut a hole into the VAC dressing and bridge dressing to hip with granufoam dressing. Leg VAC drape over entire granular foam dressing. Attach suction attachment to granufoam and wound VAC. Run wound VAC at 125 mmHg continuous, high. Perform wound care q M/W/, and as needed for dressing dislodgement. 2. Left Posterior Lateral Heel: sDTI, present on admission. Site has dark discolored area, soft, boggy. No odor, no drainage. Periwound intact. Skin is still intact. Site measures 6.3 cm x 3.5 cm. 3. Right Posterior Heel: sDTI, present on admission. Site has dark discolored area, soft, boggy. No odor, no drainage. Periwound intact. Skin is still intact. Site measures 4.7 cm x 3.4 cm. Recommend continue: [place] sDTI sites with Betadine. Allow Betadine to air dry. Cover sites with foam dressings. Elevate, offload and float bilateral heels with 1 pillow lengthwise under each extremity at all times. Do not allow heels to touch bed or other surfaces at any time. 4. Left Lateral Hip: Area of dark discolored skin with scar tissue present anteriorly. Skin is intact Recommend: Cover site with foam dressing for protection. Assess site every shift with peel and peek technique. Change dressing daily, and as needed for dressing soiling or dislodgment. Also recommend continue: Reposition patient side to side only every 2 hours with pillow support and off-load pressure areas with pillows for pressure re-distribution. Offload, elevate and float bilateral heels with 1 pillow lengthwise under each extremity at all times. Perform skin care and monitor skin integrity Q shift. Use moisture barrier cream on buttocks and other moisture susceptible areas QID and as needed for soiling. Maintain patient on an IsoFlex MINH low air-loss mattress with low air loss therapy.
--- NOTE | 2022-06-07 17:32 | NUR ---
BUFFY DENIS TAKING OF THE PT WAS INFORMED THAT [facility] DID NOT HAVE ANY AVAILABLE BED TODAY. BED WILL BE AVAILABLE TOMORROW. [facility] WAS PUT ON WILL CALL. SPOKE TO TRICIA.
--- NOTE | 2022-06-07 18:07 | NUR ---
A/Ox3,vss,resting in bed,agitated and irritable with care at times right upper arm joanna and swelling d/t DVT +,IV site in left forearm patent and intact,wound care done per wound care nurse eloy.and dressing changed to sacrum with foam dressing instead of wound vac for pending transfer to SNF,yet,[facility] not taking to patient until tomorrow because there's no room since they have covid outbreak per nurse edmundo in [facility].needs attended,call light & personal items within pt reach,safety maintained.continue to monitor pt.
--- NOTE | 2022-06-07 19:58 | NUR ---
RECEIVED PT LYING IN BED, NO DISTRESS NOTED. DENIES PAIN. AAOX3. O2 SAT 100% ON RA. REDNESS, SWELLING AND WARMTH TO RUE. ELEVATED ONTO PILLOW. IV TO LT FA SITE CDI. COLOSTOMY BAG WITH MINIMAL OUTPUT. F/C DRAINING YELLOW URINE. FAMILY MEMBER AT BEDSIDE.
[2022-06-08 05:50] VITALS: BP_SYST 112
[2022-06-08 07:00] VITALS: BP_SYST 97
[2022-06-08 07:36] LABS: ANION GAP 17 (5-15); CALCIUM 8.2 mg/dL (8.4-11.0); CHLORIDE 106 mmol/L (98-107); CREATININE 3.36 mg/dL (0.55-1.30); GLUCOSE 128 mg/dL (70-99); UREA NITROGEN, BLOOD 77 mg/dL (8-21); VANCOMYCIN,RANDOM 16.2 ug/mL
[2022-06-08 08:12] LABS: BASOPHILS # (AUTO) 0.1 K/uL (0.0-0.2); BASOPHILS % (AUTO) 0.6 % (0.0-2.0); EOSINOPHILS # (AUTO) 0.2 K/uL (0.0-0.4); EOSINOPHILS % (AUTO) 0.9 % (0.0-4.0); HEMOGLOBIN 8.2 g/dL (14.0-18.0); LYMPHOCYTES # (AUTO) 2.9 K/uL (1.0-5.5); LYMPHOCYTES % (AUTO) 15.1 % (20.5-51.5); MEAN CORPUSCULAR HEMOGLOBIN 31 pg (27-31); MEAN CORPUSCULAR HGB CONC 33 % (32-36); MEAN CORPUSCULAR VOLUME 95 fL (79.0-98.0); MONOCYTES # (AUTO) 1.1 K/uL (0.0-1.0); MONOCYTES % (AUTO) 5.6 % (1.7-9.3); NEUTROPHILS # (AUTO) 15.1 K/uL (1.8-7.7); NEUTROPHILS % (AUTO) 77.8 % (40.0-70.0); PLATELET COUNT (AUTO) 334 K/uL (130-430); RED BLOOD CELL COUNT(AUTO) 2.65 MIL/uL (4.2-6.2); RED CELL DISTRIBUTION WIDTH 18.8 % (9.0-15.0); WHITE BLOOD COUNT (AUTO) 19.4 K/uL (4.8-10.8)
--- NOTE | 2022-06-08 09:30 | NUR ---
Hold Discharge: Orders received from Dr. Baum to hold discharge. Dr. Baum requested for Dr. Monte to do a second debridement due to Sepsis. Dr. Monte's office was informed of debridement request.
[2022-06-08] MEDS: SODIUM BICARBONATE 650 MG TABLET PO SCH (11:35)
[2022-06-08] MEDS: GABAPENTIN 300 MG CAPSULE PO SCH (11:35)
[2022-06-08] MEDS: TAMSULOSIN HCL 0.4 MG CAP PO SCH (11:35)
[2022-06-08] MEDS: MIDODRINE HCL 5 MG TABLET (PROAMATINE) PO SCH (11:36)
--- NOTE | 2022-06-08 12:00 | NUR ---
Patient resting in bed. Able to verbalize name, confused about location. non ambulatory, ornelas catheter in place draining clear yellow urine. Dressing intact to sacral area, bilateral heels. and right arm swelling. No SOB, vital signs wnl. No acute distress at this time.
--- NOTE | 2022-06-08 12:00 | NUR ---
TO DISCHARGE PATIENT TODAY NOTIFIED DR LYNN THAT DR SHEPARD WANTS TO HOLD THE DISCHARGE DUE TO PATIENT IS SEPTIC AND MIGHT NEED ANOTHER DEBRIDEMENT. DR LYNN STILL WANTS THE PATIENT TO BE DISCHARGE, PATIENT WAS CLEARED BY ID TO BE TRANSFER TO SNF WITH IV ANTIBIOTICS.
[2022-06-08 12:30] VITALS: BP_SYST 97
[2022-06-08] MEDS ORDERED: MEROPENEM 500 MG in NS 50 ML IV SCH (14:00)
[2022-06-08 14:22] VITALS: BP_SYST 97
[2022-06-08] MEDS ORDERED: SODIUM BICARBONATE 650 MG TABLET PO SCH (15:00)
[2022-06-08] MEDS ORDERED: LINEZOLID 300 ML IV SCH (21:00)
== END 2022-06-08 14:00 | DRG 853 ==
LOC: SED 11:34 → STU 19:39 → SMU 05-30 13:00
PROVIDERS: ADMIT Family Medicine; ATTEND Family Medicine
PROC: 05HY33Z Insertion of Infusion Device into Upper Vein, Percutaneous Approach (ICD-10-PCS; 2022-05-28)
PROC: B54MZZA Ultrasonography of Right Upper Extremity Veins, Guidance (ICD-10-PCS; 2022-05-28)
PROC: 0KBN0ZZ Excision of Right Hip Muscle, Open Approach (ICD-10-PCS; 2022-05-30)
PROC: 0KBP0ZZ Excision of Left Hip Muscle, Open Approach (ICD-10-PCS; principal; 2022-05-30 14:00)
DX: A41.9 Sepsis, unspecified organism (principal); L89.154 Pressure ulcer of sacral region, stage 4; N17.0 Acute kidney failure with tubular necrosis; F11.20 Opioid dependence, uncomplicated; N13.6 Pyonephrosis; C18.9 Malignant neoplasm of colon, unspecified; M46.28 Osteomyelitis of vertebra, sacral and sacrococcygeal region; N18.4 Chronic kidney disease, stage 4 (severe); N40.0 Benign prostatic hyperplasia without lower urinary tract symptoms; K21.9 Gastro-esophageal reflux disease without esophagitis; G89.29 Other chronic pain; B96.20 Unspecified Escherichia coli [E. coli] as the cause of diseases classified elsewhere; E11.69 Type 2 diabetes mellitus with other specified complication; I12.9 Hypertensive chronic kidney disease with stage 1 through stage 4 chronic kidney disease, or unspecified chronic kidney disease; E11.22 Type 2 diabetes mellitus with diabetic chronic kidney disease; Z20.822 Contact with and (suspected) exposure to COVID-19; E11.65 Type 2 diabetes mellitus with hyperglycemia; Z85.038 Personal history of other malignant neoplasm of large intestine; Z93.3 Colostomy status; Z79.01 Long term (current) use of anticoagulants
CPT/HCPCS: 36415; 71045; 72192-TC; 76376; 76770; 80048; 80053; 80202; 81000; 82962; 83036; 83605; 83735; 84484; 85007; 85025; 85027; 85610-TC; 85730-TC; 87040; 87070-TC; 87075-TC; 87081; 87086; 87186-TC; 88304; 93005; 93971; 96365; 96368; 96375; 99285; A4421; A5061; C1751; G0378; J0122; J1450; J1644; J2020; J2185; J2270; J2405; J2543; J2704; J3370; J7030; J7040; J7050; J7060; J7120

== ENCOUNTER 2022-06-19 15:33 | Inpatient (IN) | payer OTHER ==
[~2022-06-19] VITALS: Ht 172.7 cm; Wt 80.7 kg
[~2022-06-19 15:33] MED LIST: APIX5TAB PO; ERAV50VI IV; FLUC100P4 IV; GABA-529 PO; MIDO10TA PO; OXYC5TAB3 PO; TAMS0.4C96 PO; Vancomycin Per Pharmacy XX
[2022-06-19 15:35] VITALS: BP_SYST 92
--- NOTE | 2022-06-19 15:41 | NUR ---
Placed in room 01 . Placed on customs import specialist, blood pressure machine and pulse oximeter. To gown for exam. Side rails up.
--- NOTE | 2022-06-19 15:42 | NUR ---
DR. MCCARTHY AT BEDSIDE TO ASSESS PT.
[2022-06-19] MEDS ORDERED: NS 500 ML IV ONE (16:00)
--- NOTE | 2022-06-19 16:02 | NUR ---
COVID/EKG COMPLETED.
--- NOTE | 2022-06-19 16:06 | NUR ---
NS 500CC BOLUS INITIATED, TO BE COMPLETED AT 1637.
--- NOTE | 2022-06-19 16:15 | NUR ---
YUNI AND INFLUENZA SWABS OBTAINED AND SENT TO LAB.
--- NOTE | 2022-06-19 16:30 | NUR ---
Patient arrived with ornelas in place, changed due to standard of practice prior to admission. PT ORNELAS CATH REMOVED. 10CC NS REMOVED FROM BALLOON. SITE CLEANSED. NEW # 16 FR Ornelas catheter with use of sterile technique. Immediate return of 5cc CLOUDY urine noted. Bedside drainage bag placed below level of bladder. Urine sample collected and sent to lab. Pt tolerated procedure WELL.
[2022-06-19] MEDS ORDERED: TAMS-11 PO (16:39)
[2022-06-19] MEDS ORDERED: INSU100I40 (16:39)
[2022-06-19] MEDS ORDERED: NEU300 PO (16:39)
[2022-06-19] MEDS ORDERED: MIDO10TA PO (16:39)
[2022-06-19] MEDS ORDERED: OXYIR5 PO (16:39)
[2022-06-19] MEDS ORDERED: ACET325T53 PO (16:39)
[2022-06-19] MEDS ORDERED: OXYC10TA56 PO (16:39)
[2022-06-19] MEDS ORDERED: DOCU-156 PO (16:39)
[2022-06-19 16:48] LABS: HEMOGLOBIN 9.3 g/dL (14.0-18.0); RED CELL DISTRIBUTION WIDTH 18.8 % (9.0-15.0)
[2022-06-19 16:55] LABS: HEMATOCRIT 29.9 % (36-54); MEAN CORPUSCULAR HEMOGLOBIN 31 pg (27-31); MEAN CORPUSCULAR HGB CONC 31 % (32-36); MEAN CORPUSCULAR VOLUME 100 fL (79.0-98.0); PLATELET COUNT (AUTO) 580 K/uL (130-430); RED BLOOD CELL COUNT(AUTO) 2.99 MIL/uL (4.2-6.2)
[2022-06-19 17:02] LABS: ANION GAP 18 (5-15); CALCIUM 8.7 mg/dL (8.4-11.0); CHLORIDE 105 mmol/L (98-107); CREATININE 4.03 mg/dL (0.55-1.30); GLUCOSE 134 mg/dL (70-99)
[2022-06-19 17:04] LABS: WHITE BLOOD COUNT (AUTO) 31.6 K/uL (4.8-10.8)
[2022-06-19 17:06] LABS: UREA NITROGEN, BLOOD 114 mg/dL (8-21)
[2022-06-19] MEDS ORDERED: PIPERACILLIN/TAZO 3.375 GM in NS 50 ML IV ONE (17:15)
[2022-06-19] MEDS ORDERED: VANCOMYCIN HCL 1,500 MG in NS 250 ML IV SCH (17:15)
[2022-06-19] MEDS ORDERED: VANCOMYCIN HCL 1,500 MG in NS 250 ML IV ONE (17:25)
[2022-06-19] MEDS ORDERED: PIPERACILLIN/TAZOBACTAM 3.375 GM/VIAL (ZOSYN) IV ONE (17:26)
[2022-06-19 17:27] LABS: BAND % (MANUAL) 2 % (0-6); BASOPHILS % (MANUAL) 0 % (0-2); EOSINOPHILS % (MANUAL) 0 % (0-7); LYMPHOCYTES % (MANUAL) 11 % (20-46); METAMYELOCYTES % 2 % (0-0); MONOCYTES % (MANUAL) 4 % (0-11); MYELOCYTES % 1 % (0-0)
[2022-06-19] MEDS ORDERED: NACL 0.9% 1,000 ML IV ONE (17:30)
[2022-06-19 17:34] LABS: ALANINE AMINOTRANSFERASE 25 U/L (12-78); ALBUMIN 2.4 g/dL (3.4-4.8); ASPARTATE AMINOTRANSFERASE 31 U/L (10-37); TOTAL BILIRUBIN 0.4 mg/dL (0.0-1.0)
--- NOTE | 2022-06-19 17:41 | NUR ---
ZOSYN IVPB, VANCO IVPB And NS 1000 BOLUS ALL GIVEN.
--- NOTE | 2022-06-19 17:42 | NUR ---
URINE OBTAINED FROM PT'S TAVERA CATH BAG THAT HE ARRIVED WITH WHEN ADMITTED, UNABLE TO OBTAIN URINE FROM NEW TAVERA CATH THAT WAS PLACED, PER REQUEST BY DR. MCCARTHY.
[2022-06-19] MEDS ORDERED: ALBUMIN HUMAN 25% 100 ML IV ONE (18:00)
[2022-06-19 18:07] LABS: BILIRUBIN,URINE NEGATIVE (NEGATIVE); BLOOD, URINE 2+ (NEGATIVE); COLOR,URINE YELLOW (YELLOW); GLUCOSE,URINE NEGATIVE (NEGATIVE); KETONES,URINE NEGATIVE (NEGATIVE); LEUKOCYTE ESTERASE ,URINE NEGATIVE (NEGATIVE); NITRITE, URINE NEGATIVE (NEGATIVE); PH,URINE 5.5 (5.0-8.0); PROTEIN URINE 2+ (NEGATIVE); UROBILINOGEN,URINE 0.2 (0.2-1.0)
[2022-06-19 18:16] LABS: CLARITY/URINE SLIGHTLY HAZY (CLEAR)
[2022-06-19 18:25] LABS: BACTERIA,URINE FEW /HPF (None Seen); MUCUS,URINE None Seen /LPF (None Seen); URIC ACID CRYSTALS,URINE 0-10 /HPF (None Seen); URINE AMORPHOUS URATE 1+ /HPF (None Seen)
--- NOTE | 2022-06-19 18:27 | NUR ---
SECOND BOLUS 1000ML BOLUS INITIATED. ALBUMIN 100CC GIVEN.
[2022-06-19] MEDS ORDERED: SODIUM ZIRCONIUM CYCLOSILICATE 10 GM POWD.PACK PO ONE ×2 (18:57→19:00)
[2022-06-19] MEDS ORDERED: DEXTROSE 50% JECT 50 ML DISP.SYRIN IVP PRN (19:15)
[2022-06-19] MEDS ORDERED: MORPHINE 2 MG/ML INJ. SYRINGE IVP PRN (19:15)
[2022-06-19] MEDS ORDERED: DOCUSATE SODIUM 100 MG CAPSULE PO PRN (19:15)
[2022-06-19] MEDS ORDERED: POTASSIUM CHLORIDE 20 MEQ TAB.PRT.SR PO PRN (19:15)
[2022-06-19] MEDS ORDERED: ONDANSETRON HCL 4 MG/2 ML VIAL IVP PRN (19:15)
[2022-06-19] MEDS ORDERED: NACL 0.9% 1,000 ML IV SCH (19:15)
[2022-06-19] MEDS ORDERED: ACETAMINOPHEN 325 MG TABLET PO PRN ×2 (19:15→19:45)
[2022-06-19] MEDS ORDERED: MAGNESIUM SULFATE 50 ML IV PRN (19:15)
[2022-06-19] MEDS ORDERED: INSULIN LISPRO SLIDING SCALE 100 UNITS/ML, 3 ML VIAL (humaLOG) SUBCUT PRN (19:15)
[2022-06-19] MEDS ORDERED: MUPIROCIN 2% TOPICAL OINTMENT 22 GM NS PRN (19:15)
[2022-06-19] MEDS ORDERED: LORazepam 2 MG/ML VIAL IVP PRN (19:15)
[2022-06-19] MEDS ORDERED: ZOLPIDEM TARTRATE 5 MG TABLET PO PRN (19:15)
--- NOTE | 2022-06-19 19:21 | NUR ---
JUSTICE PO GIVEN FOR K+ =5.4
--- NOTE | 2022-06-19 19:22 | NUR ---
Admit bed requested Patient will be admitted to care of Dr. KENNEDY. Admitted to TELEMETRY unit. Diagnosis SEPSIS Inpatient (Yes or No) YES Observation (Yes or No) NO Orientation concerns or request close to nursing station (Yes or No) NO Covid Status NEGATIVE On vent or bipap NO Isolation requirements NONE Needs a sitter NO From Home (Yes or if No enter name of facility) [facility] Requires Dialysis (Yes or No) NO Med Rec Completed (Yes of No) YES
--- NOTE | 2022-06-19 19:24 | NUR ---
ENDORSED PT TO BUFFY ROLDAN. ALL QUESTIONS AND CONCERNS ADDRESSED.
[2022-06-19] MEDS: DOCUSATE SODIUM 100 MG CAPSULE PO SCH (21:00)
[2022-06-19] MEDS: PIPERACILLIN/TAZOBACTAM 2.25 GM in NS 50 ML IV SCH (21:19)
[2022-06-19] MEDS ORDERED: PIPERACILLIN/TAZOBACTAM 2.25 GM VIAL IV ONE (21:34)
[2022-06-19] MEDS: SODIUM BICARBONATE 8.4% JECT 150 MEQ in D5W 1,000 ML IVP SCH (21:45)
[2022-06-19] MEDS: SODIUM ZIRCONIUM CYCLOSILICATE 10 GM POWD.PACK PO SCH (21:45)
[2022-06-19 22:48] VITALS: BP_SYST 132
--- NOTE | 2022-06-19 23:14 | NUR ---
Patient will be admitted to care of MD Khan. Admitted to TELE unit. Will go to room 132B. Complete and up to date summary report printed. SBAR report given at bedside to BUFFY Cabrera with opportunity for questions.
--- NOTE | 2022-06-19 23:27 | NUR ---
Report received from BUFFY Ruiz for continuity of care. Patient transported from [facility] to hospital bed. Patient is alert and oriented x2-3 with periods of confusion. Patient able to turn as appropriate. Pictures taken. Patient has wounds that were addressed with mepilex. Patient ornelas catheter noted. Turned as appropriate. Patient appears to have periods of spacing out. Vital signs stable at the moment. Will continue to monitor. Call light within reach.
[2022-06-19 23:41] VITALS: BP_SYST 142
[2022-06-19] MEDS ORDERED: SODIUM BICARBONATE 8.4% JECT 50 MEQ/50 ML SYRINGE ONE (23:54)
[2022-06-20] MEDS: oxyCODONE HCL 5 MG TABLET PO SCH ×3 (00:01→21:00)
[2022-06-20] MEDS: MIDODRINE HCL 5 MG TABLET (PROAMATINE) PO SCH ×4 (00:01→21:00)
[2022-06-20] MEDS: HEPARIN SODIUM,PORCINE 5,000 UNITS/ML VIAL SUBCUT SCH ×3 (00:02→21:24)
[2022-06-20 02:00] VITALS: BP_SYST 148
--- NOTE | 2022-06-20 03:49 | NUR ---
Consultation Paged Reason for Consultation: sepsis Was consult called: Y Person who was notified: Shaylee Consulting Physician: Dr. Koo (Dr. Aragon is it operations manager) Ordering Physician: Dr. Khan
--- NOTE | 2022-06-20 04:11 | NUR ---
Consultation Paged Reason for Consultation: renal fail Was consult called: Y Person who was notified: Shaylee Consulting Physician: Shantell Rhodes (Dr. Lindo is tone artist apprentice) Ordering Physician: Dr. Khan
[2022-06-20] MEDS: PIPERACILLIN/TAZOBACTAM 2.25 GM in NS 50 ML IV SCH ×3 (05:42→21:22)
--- NOTE | 2022-06-20 05:56 | NUR ---
Consultation Paged Reason for Consultation: infected ulcers Was consult called: Y Person who was notified: Layla Consulting Physician: Dr. Monte Ordering Physician: Dr. Khan
[2022-06-20 06:00] VITALS: BP_SYST 124
--- NOTE | 2022-06-20 06:58 | NUR ---
Report given to day shift RN for continuity of care. Patient in stable condition. No distress noted.
[2022-06-20 07:04] LABS: BASOPHILS # (AUTO) 0.2 K/uL (0.0-0.2); BASOPHILS % (AUTO) 0.8 % (0.0-2.0); EOSINOPHILS # (AUTO) 0.1 K/uL (0.0-0.4); EOSINOPHILS % (AUTO) 0.4 % (0.0-4.0); HEMATOCRIT 23.1 % (36-54); HEMOGLOBIN 7.5 g/dL (14.0-18.0); LYMPHOCYTES # (AUTO) 3.6 K/uL (1.0-5.5); LYMPHOCYTES % (AUTO) 13.9 % (20.5-51.5); MEAN CORPUSCULAR HEMOGLOBIN 32 pg (27-31); MEAN CORPUSCULAR HGB CONC 32 % (32-36); MEAN CORPUSCULAR VOLUME 98 fL (79.0-98.0); MONOCYTES # (AUTO) 1.5 K/uL (0.0-1.0); NEUTROPHILS # (AUTO) 20.2 K/uL (1.8-7.7); PLATELET COUNT (AUTO) 459 K/uL (130-430); RED BLOOD CELL COUNT(AUTO) 2.35 MIL/uL (4.2-6.2); WHITE BLOOD COUNT (AUTO) 25.6 K/uL (4.8-10.8)
--- NOTE | 2022-06-20 07:20 | NUR ---
opening note Received SBAR from night RN. Patient in bed, respirations even, non labored. bed in low and locked position call light within reach. Bed alarm on. Patient responds to painful stimuli, not to voice.
[2022-06-20 07:39] LABS: ANION GAP 17 (5-15); CALCIUM 7.9 mg/dL (8.4-11.0); CHLORIDE 109 mmol/L (98-107); CREATININE 3.56 mg/dL (0.55-1.30); GLUCOSE 116 mg/dL (70-99); VANCOMYCIN,RANDOM 33.2 ug/mL
[2022-06-20 07:40] LABS: UREA NITROGEN, BLOOD 105 mg/dL (8-21)
--- NOTE | 2022-06-20 07:40 | NUR ---
critical received critical BUN 105
[2022-06-20 07:42] LABS: NEUTROPHILS % (AUTO) 78.9 % (40.0-70.0)
[2022-06-20 08:00] VITALS: BP_SYST 106
--- NOTE | 2022-06-20 08:40 | NUR ---
critical paged Dr Baum regarding BUN
[2022-06-20] MEDS: GABAPENTIN 300 MG CAPSULE PO SCH ×2 (09:00)
[2022-06-20] MEDS: SODIUM ZIRCONIUM CYCLOSILICATE 10 GM POWD.PACK PO SCH (09:00)
[2022-06-20] MEDS: DOCUSATE SODIUM 100 MG CAPSULE PO SCH ×2 (09:00→21:00)
--- NOTE | 2022-06-20 09:30 | NUR ---
Informed Dr Baum of critical BUN new orders received
[2022-06-20] MEDS: MORPHINE 2 MG/ML INJ. SYRINGE IVP PRN (10:03)
[2022-06-20 11:26] VITALS: BP_SYST 100
[2022-06-20] MEDS: SODIUM BICARBONATE 8.4% JECT 150 MEQ in D5W 1,000 ML IVP SCH ×2 (11:42→21:34)
--- NOTE | 2022-06-20 12:05 | NUR ---
FAMILY SPOKE WITH PATIENTS SON NATHANIEL INFORMED THAT DR KENNEDY HAS ORDERED A NG TUBE BE PLACED. ANSWERED ALL QUESTIONS, SON VERBALIZED UNDERSTANDING AND GAVE CONSENT. SECOND RN VERIFIED. DR SHEPARD SPOKE WITH SON REGARDING DIALYSIS, ANSWERED ALL QUESTIONS, SON VERBALIZED UNDERSTANDING AND GAVE CONSENT, SECOND RN VERIFIED DR CROWE SPOKE WITH SON REGARDING THE NEED FOR A CENTRAL VENOUS CATHETER. ANSWERED ALL QUESTION, SON VERBALIZED UNDERSTANDING AND GAVE CONSENT, SECOND RN VERIFIED.
--- NOTE | 2022-06-20 13:09 | NUR ---
Dietitian Recommendations * Consider initiating Nepro @ 45mL/hr (goal) via NGT Provides: 1944 kcal, 87 g PRO and 785 mL free water Meets: 93% of lower kcal and 104% of upper est PRO needs GS, MPH, RD Please refer to RD Assessment for further details. Thanks! Addendum: 06/20/22 at [address] Amended: Links added.
--- NOTE | 2022-06-20 13:43 | NUR ---
nurse note patient awake, alert and oriented x3. able to swallow water. will hold on NG tube at this time. patient is NPO awaiting insertion of sandra catheter.
--- NOTE | 2022-06-20 14:59 | NUR ---
nurse note patients sonGerardo is bedside with patient. Discussed planned procedures with family, answered all questions, son verbalized understanding and wants to wait for other brother Lv who is POA to come in and discuss what course they want to take.
[2022-06-20 16:54] VITALS: BP_SYST 135
--- NOTE | 2022-06-20 17:36 | NUR ---
nurse note friend bedside, patient is awake and alert x3. patient in bed, respirations even, non labored, bed in low and locked position, call light within reach, bed alarm on. IVF's running as ordered.
--- NOTE | 2022-06-20 17:49 | NUR ---
MD DR CROWE CALLED REGARDING FRANCISCO CATH PLACEMENT. INFORMED MD THAT PATIENTS SON WISH TO WAIT AND DISCUSS TREATMENT OPTIONS.
--- NOTE | 2022-06-20 17:50 | NUR ---
COUGHING PATIENT IS IN BED, ALERT AND ORIENTED X3. ATTEMPTED TO FEED PATIENT DINNER, PATIENT COUGHED AFTER EACH BITE. REMOVED FOOD AND PLACED PATIENT ON NPO PENDING SWALLOW EVAL
--- NOTE | 2022-06-20 18:32 | NUR ---
ST EVALUATION COMPLETED. ST TX NOT INDICATED AT THIS TIME. UNLIKELY THAT PT CAN SUSTAIN HIMSELF WITH PO DIET. SWALLOW FUNCTION AND SAFETY IS INCONSISTENT AND HE HAS LIMITED APPETITE. RECOMMEND ALTERNATIVE MEANS OF NUTRITION WITH PRN ORAL GRATIFICATION OF PUREE AND NECTAR THICK LIQUIDS. 1:1 FEEDER AND FULL ASPIRATION PRECAUTIONS FOR ANY PO INTAKE.
--- NOTE | 2022-06-20 19:30 | NUR ---
REPORT RECEIVED, NO DISTRESS NOTED, COMFORT MAINTAINED, TOTAL CARE WITH ADL, NO COMPLIANTS AT THIS TIME
--- NOTE | 2022-06-20 19:31 | NUR ---
closing note Provided SBAR to night RN. Patient in bed, respirations even, non labored, bed in low and locked position, call light within reach bed alarm on. IVF's running as ordered. Richmond draining by gravity. Colostomy draining. Endorsed wound care to night RN. Explained that family has not decided about the NG tube, Venous catheter placement for dialysis or debridement of wound.
[2022-06-20 20:00] VITALS: BP_SYST 107
[2022-06-20] MEDS: TAMSULOSIN HCL 0.4 MG CAP PO SCH ×2 (21:00)
--- NOTE | 2022-06-20 21:00 | NUR ---
NO ORAL MEDICATION GIVEN, PATIENT NPO, PUREED DIET FOR GRATIFICATION, ATTEMPTED SMALL AMT OF APPLE SAUCE PATIENT COUGHING, DID NOT CONTINUE TO GIVE ORAL INTAKE AT THIS TIME, PERICARE GIVEN, COCCYX DECUBITUS WOUND CHANGED PER ORDERS
[2022-06-21] VITALS: BP_SYST 100
--- NOTE | 2022-06-21 05:00 | NUR ---
PATIENT SLEPT WELL, NO DISTRESS NOTED, COMFORT MAINTAINED, TURN Q2HRS AND PRN
[2022-06-21 05:31] LABS: BASOPHILS # (AUTO) 0.1 K/uL (0.0-0.2); BASOPHILS % (AUTO) 0.6 % (0.0-2.0); EOSINOPHILS # (AUTO) 0.1 K/uL (0.0-0.4); EOSINOPHILS % (AUTO) 0.6 % (0.0-4.0); HEMATOCRIT 22.8 % (36-54); HEMOGLOBIN 7.4 g/dL (14.0-18.0); MEAN CORPUSCULAR HEMOGLOBIN 31 pg (27-31); MEAN CORPUSCULAR HGB CONC 33 % (32-36); NEUTROPHILS # (AUTO) 16.9 K/uL (1.8-7.7); NEUTROPHILS % (AUTO) 83.8 % (40.0-70.0); PLATELET COUNT (AUTO) 425 K/uL (130-430); RED BLOOD CELL COUNT(AUTO) 2.38 MIL/uL (4.2-6.2); RED CELL DISTRIBUTION WIDTH 17.7 % (9.0-15.0); WHITE BLOOD COUNT (AUTO) 20.1 K/uL (4.8-10.8)
[2022-06-21] MEDS: SODIUM BICARBONATE 8.4% JECT 150 MEQ in D5W 1,000 ML IVP SCH (05:31)
[2022-06-21] MEDS: PIPERACILLIN/TAZOBACTAM 2.25 GM in NS 50 ML IV SCH ×3 (05:48→23:48)
[2022-06-21 05:59] LABS: ANION GAP 15 (5-15); CHLORIDE 106 mmol/L (98-107); GLUCOSE 106 mg/dL (70-99); UREA NITROGEN, BLOOD 91 mg/dL (8-21); VANCOMYCIN,RANDOM 33.7 ug/mL
[2022-06-21 07:08] LABS: MEAN CORPUSCULAR VOLUME 96 fL (79.0-98.0)
--- NOTE | 2022-06-21 07:51 | NUR ---
OPENING NOTES: RECEIVED BEDSIDE SBAR FROM PM SHIFT NURSE, PATIENT IS RESTING WELL WITH EYES CLOSED NO S/S OF ANY DISTRESS, BED AT LOW AND LOCKED POSITION, ALL SAFETY CHECKS DONE THIS AM, WILL MONITOR PATIENT PER ORDERS.
[2022-06-21] MEDS: HEPARIN SODIUM,PORCINE 5,000 UNITS/ML VIAL SUBCUT SCH ×2 (09:27→23:52)
[2022-06-21] MEDS: DOCUSATE SODIUM 100 MG CAPSULE PO SCH ×2 (09:38→21:00)
[2022-06-21] MEDS: MIDODRINE HCL 5 MG TABLET (PROAMATINE) PO SCH ×3 (09:38→21:00)
[2022-06-21] MEDS: oxyCODONE HCL 5 MG TABLET PO SCH ×2 (09:43→21:00)
[2022-06-21 09:58] VITALS: BP_SYST 93
[2022-06-21 11:21] VITALS: BP_SYST 99
--- NOTE | 2022-06-21 12:26 | NUR ---
DANTE DRAKE CALLED AND LEFT A MESSAGE TO [facility] AT [phone]
--- NOTE | 2022-06-21 12:35 | NUR ---
Pullman Conductor MANAGEMENT ACCOUNTS MANAGER recevied a referral from Dr. Khan for Hospice services with [facility]. MANAGEMENT ACCOUNTS MANAGER prepared a packet and sent to [facility] and spoke to rep. Iker who will begin working on referral and reach out to son MANAGEMENT ACCOUNTS MANAGER spoke to sonGerardo at bedside who stated he wanted his dad to go home so he can there. MANAGEMENT ACCOUNTS MANAGER shared with Gerardo info about [facility] and the rep will contact him. Son Gerardo was appreciative. MANAGEMENT ACCOUNTS MANAGER provided a business care and opportunity for questions. MANAGEMENT ACCOUNTS MANAGER will remain available as needed.
[2022-06-21 15:38] VITALS: BP_SYST 97
--- NOTE | 2022-06-21 15:52 | NUR ---
SPOKE WITH BOBBY WITH [facility] [phone] GAVE REPORT, THEY WILL CALL US BACK WITH ALL THE ARRANGEMENTS
--- NOTE | 2022-06-21 17:46 | NUR ---
Automotive Warranty Administrator LAUNDRY WORKER spoke to [facility] other son, Lv Chopra who stated he did speak to Dr. Khan who explained hospice. Son Lv does want to have hospice services for pt. and asked it pt. can stay here with hospice. LAUNDRY WORKER asked son to consider hospice at a families home or back at [facility] if [facility] can provide services there. [facility] may have their own hospice co. LAUNDRY WORKER [facility] Lv will reach out to rep. Dong.
--- NOTE | 2022-06-21 18:29 | NUR ---
CLOSING NOTES: PATIENT REMAINED STABLE TODAY ALL SAFETY CHECKS DONE THOUGHT THE DAY NO S/S OF ANY DISTRESS, BED AT LOW AND LOCKED POSITION CALL LIGHT IN REACH, IV INTACT. WILL GIVE PM SHIFT NURSE BEDSIDE SBAR.
--- NOTE | 2022-06-21 19:30 | NUR ---
REPORT RECEIVED, NO DISTRESS NOTED, COMFORT MAINTAINED, TAVERA PATENT, LEFT ABDOMEN COLOSTOMY PATENT,
[2022-06-21 20:35] VITALS: BP_SYST 106
[2022-06-21] MEDS: TAMSULOSIN HCL 0.4 MG CAP PO SCH (21:00)
[2022-06-21] MEDS: MORPHINE 2 MG/ML INJ. SYRINGE IVP PRN (23:50)
[2022-06-22 00:14] VITALS: BP_SYST 124
--- NOTE | 2022-06-22 00:30 | NUR ---
LINEN CHANGED, PERICARE GIVEN, ALL DRESSINGS CHANGED SEE ASSESSMENT, TURN Q2HRS AND PRN, TOTAL CARE WITH ADL
[2022-06-22] MEDS: PIPERACILLIN/TAZOBACTAM 2.25 GM in NS 50 ML IV SCH ×2 (05:28→12:54)
--- NOTE | 2022-06-22 06:00 | NUR ---
NO DISTRESS NOTED, ALL PO MEDICATIONS HELD, PATIENT NPO, HOSPICE/COMFORT MEASURES ORDERED, REPOSITION Q2HRS, MORPHINE GIVEN FOR DISCOMFORT, SEE EMAR
[2022-06-22 07:26] LABS: BASOPHILS # (AUTO) 0.1 K/uL (0.0-0.2); BASOPHILS % (AUTO) 0.6 % (0.0-2.0); EOSINOPHILS # (AUTO) 0.1 K/uL (0.0-0.4); EOSINOPHILS % (AUTO) 0.6 % (0.0-4.0); LYMPHOCYTES % (AUTO) 15.2 % (20.5-51.5); MEAN CORPUSCULAR HEMOGLOBIN 31 pg (27-31); MEAN CORPUSCULAR HGB CONC 33 % (32-36); MEAN CORPUSCULAR VOLUME 96 fL (79.0-98.0); MONOCYTES # (AUTO) 1.1 K/uL (0.0-1.0); MONOCYTES % (AUTO) 5.7 % (1.7-9.3); NEUTROPHILS # (AUTO) 15.4 K/uL (1.8-7.7); NEUTROPHILS % (AUTO) 77.9 % (40.0-70.0); PLATELET COUNT (AUTO) 350 K/uL (130-430); RED BLOOD CELL COUNT(AUTO) 2.21 MIL/uL (4.2-6.2); RED CELL DISTRIBUTION WIDTH 17.8 % (9.0-15.0); WHITE BLOOD COUNT (AUTO) 19.8 K/uL (4.8-10.8)
--- NOTE | 2022-06-22 07:31 | NUR ---
completed wound care, stew heel -deep tissue injury-foam dressing applied, left hip pressure injury-bruising/purple-foam dressing applied, coccyx stage 4-foul odor, tissue yellow, red, and some necrotic areas noted, cleanse with ns, packed with iodoform, covered with foam dressing
--- NOTE | 2022-06-22 07:32 | NUR ---
OPENING NOTES: RECEIVED BEDSIDE SBAR FROM PM SHIFT NURSE MICHELE RN, PATIENT IS RESTING WELL WITH EYES CLOSED, BED AT LOCKED POSITION CALL LIGHT IN REACH, SAFETY CHECKS DONE THIS AM WILL CONT TO MONITOR PATIENT PER ORDERS.
[2022-06-22 07:39] LABS: ANION GAP 16 (5-15); CHLORIDE 108 mmol/L (98-107); CREATININE 3.18 mg/dL (0.55-1.30); GLUCOSE 126 mg/dL (70-99); UREA NITROGEN, BLOOD 79 mg/dL (8-21)
[2022-06-22] MEDS: oxyCODONE HCL 5 MG TABLET PO SCH (07:46)
[2022-06-22] MEDS: MIDODRINE HCL 5 MG TABLET (PROAMATINE) PO SCH ×2 (07:46→07:47)
[2022-06-22] MEDS: DOCUSATE SODIUM 100 MG CAPSULE PO SCH (07:46)
[2022-06-22] MEDS: SODIUM BICARBONATE 8.4% JECT 150 MEQ in D5W 1,000 ML IVP SCH (08:31)
[2022-06-22] MEDS: HEPARIN SODIUM,PORCINE 5,000 UNITS/ML VIAL SUBCUT SCH (08:33)
[2022-06-22 08:40] LABS: HEMATOCRIT 21.2 % (36-54); HEMOGLOBIN 6.9 g/dL (14.0-18.0)
--- NOTE | 2022-06-22 09:07 | NUR ---
LAB CALLED H/H 6.9 HCT [address] KENNEDY, NO NEW ORDERS AT THIS TIME.
--- NOTE | 2022-06-22 11:18 | NUR ---
Display [facility] [employer]ED AND BREAKFAST [employer]OOK went into pts. room in hopes of meeting sonLv. Lv was present. BED AND BREAKFAST COOK spoke to son Lv outside who stated he just spoke to Hanh from [facility] re. hospice care. Lv does want Hospice but is unable to care for pt at his home as he travels alot. Lv is still trying to figure out the plan for pt. Pt. has Medicare A & B so family would have to pay for a caregiver. Addendum: 06/22/22 at 1424 by Brittany Mars BED AND BREAKFAST COOK Display Carver PTs son Lv asked to see BED AND BREAKFAST COOK again. BED AND BREAKFAST COOK met with Lv who expressed concerned because pt. failed swallow eval, but son was giving pt. water. Pt is NPO. BED AND BREAKFAST COOK asked Rn. Sanches if she can look into this request. Additionally, Lv will call [facility] as someone there helped pt. fill out paperwork for Pt. to apply for medical 30 days ago. BED AND BRE[employer] spoke to Logan from [facility] who stated he is happy to make that call. BED AND BREAKFAST COOK called Lv to relay this message. During this call. SonLv stated he had decided to have pt. brought to his home with his family for hospice care. BED AND BREAKFAST COOK called [facility] who will work on this alis. Pt. will go home to [facility] to receive hospice services there. BED AND BREAKFAST COOK will remain available as needed.
[2022-06-22 11:20] VITALS: BP_SYST 101
--- NOTE | 2022-06-22 14:50 | NUR ---
FABIANO FROM [facility] INCLUDES THE [facility] CALLED WAITING FOR ADDRESS ON FAMILY TO DISCHARGE TO HOME OF
[2022-06-22 15:24] VITALS: BP_SYST 101
--- NOTE | 2022-06-22 17:24 | NUR ---
[facility] BED WILL BE DELIVERED AT 1101
[2022-06-22 17:25] VITALS: BP_SYST 93
--- NOTE | 2022-06-22 18:33 | NUR ---
CLOSING NOTES: PATIENT REMAINED STABLE THOUGHT THE DAY. NO S/S OF ANY DISTRESS, NON LABOR BREATHING, BED AT LOCKED AND LOW POSITION CALL LIGHT IN REACH ALL SAFETY CHECKS DONE THOUGHT THE DAY, WILL GIVE BEDSIDE SBAR TO PM SHIFT NURSE.
== END 2022-06-22 18:01 | disposition hospice, inpatient (51) | DRG 871 ==
LOC: SED 15:33 → SMU 19:16 → STU 22:48
PROVIDERS: ADMIT General Practice; ATTEND General Practice
DX: A41.9 Sepsis, unspecified organism (principal); L89.154 Pressure ulcer of sacral region, stage 4; N17.0 Acute kidney failure with tubular necrosis; R62.7 Adult failure to thrive; N40.0 Benign prostatic hyperplasia without lower urinary tract symptoms; G89.29 Other chronic pain; K21.9 Gastro-esophageal reflux disease without esophagitis; E11.21 Type 2 diabetes mellitus with diabetic nephropathy; E87.5 Hyperkalemia; Z20.822 Contact with and (suspected) exposure to COVID-19; Z66 Do not resuscitate; D75.839 Thrombocytosis, unspecified; Z93.3 Colostomy status; Z85.038 Personal history of other malignant neoplasm of large intestine; Z68.27 Body mass index [BMI] 27.0-27.9, adult
CPT/HCPCS: 36415; 71045; 76770; 80048; 80053; 80202; 81000; 83036; 83605; 83735; 83880; 84484; 85007; 85025; 85027; 87040; 87081; 87086; 92610-GN; 93005; 96365; 96368; 99291; 99292; G0378; J1644; J2270; J2543; J3370; J7050; J7060; P9046